=== PATIENT | female | born 1960 | race Caucasian/White ===

== ENCOUNTER 2019-02-06 12:39 | Emergency (ER) | payer OTHER ==
[2019-02-06] MEDS ORDERED: TETRACAINE HCL 0.5% 2ML OPTH ONE (13:44)
[2019-02-06] MEDS ORDERED: FLUORESCEIN SODIUM 1 MG/WRAP ONE (13:44)
[2019-02-06] MEDS ORDERED: ASPIRIN 81 MG CHEWABLE TABLET ONE (13:49)
[2019-02-06] MEDS ORDERED: FOLIC ACID 5 MG/ML VIAL ONE (13:50)
--- NOTE | 2019-02-06 14:33 | EDPHYS ---
Physician Documentation [facility] Name: Hugo Omer Age: 59 yrs Sex: Female : 1960 Arrival Date: 02/06/2019 Time: 12:44 Bed 26 Private MD: Antonia Truong C ED Physician Demian Cantu HPI: 02/06 13:30 This 59 yrs old Female presents to ER via Ambulatory with complaints of Eye cp Swelling. 13:30 The patient is experiencing pain, to the right eye. Onset: The symptoms/episode cp began/occurred yesterday, and became worse today. Duration: the symptoms are continuous. Associated signs and symptoms: Pertinent positives: headache, Pertinent negatives: chills, fever, runny nose, change in vision. Patient does not utilize any form of vision correction. Severity of symptoms: in the emergency department the symptoms have improved mildly. Historical: - Allergies: 12:56 Sulfa (Sulfonamide Antibiotics); sv - PMHx: 12:56 degenerative disc dse of cervical spine; Diabetes - NIDDM; Hypertension; no adrenal sv glands; under active thyroid; - PSHx: 12:56 None; sv - Immunization history:: Flu vaccine is not up to date. - Social history:: Smoking status: Patient/guardian denies using tobacco. - Ebola Screening: : No symptoms or risks identified at this time. ROS: 13:35 Constitutional: Negative for body aches, chills, fever, poor PO intake. cp 13:35 Eyes: Positive for pain, redness, swelling, of the right eye, Negative for discharge, cp photophobia. 13:35 ENT: Negative for drainage from ear(s), ear pain, rhinorrhea, sinus congestion, sore throat, difficulty swallowing, difficulty handling secretions. 13:35 Respiratory: Negative for cough, wheezing. 13:35 Abdomen/GI: Negative for abdominal pain, nausea, vomiting, and diarrhea. 13:35 Neuro: Positive for headache, Negative for altered mental status, weakness. 13:35 All other systems are negative. Exam: 13:40 Constitutional: The patient appears in no acute distress, alert, awake, non-toxic, well cp developed, well nourished. 13:40 Head/Face: Normocephalic, atraumatic. cp 13:40 Eyes: Periorbital structures: swelling, that is mild, on the right lower eyelid, Pupils: equal, round, and reactive to light and accomodation, Extraocular movements: intact throughout, Sclera: no appreciated abnormality, Lids and lashes: drainage, is not appreciated, stye, right lower inner eyelid, Visual patton: are intact. 13:40 ENT: External ear(s): are unremarkable, Ear canal(s): are normal, clear, TM's: dullness, bilaterally, Nose: is normal, Mouth: Lips: moist, Oral mucosa: pink and intact, moist, Posterior pharynx: is normal, airway is patent, no erythema, no exudate, Voice: is normal. 13:40 Neck: ROM/movement: is normal, is supple, without pain, no range of motions limitations, no meningismus, no nuchal rigidity. 13:40 Chest/axilla: Inspection: normal. 13:40 Cardiovascular: Rate: normal. 13:40 Respiratory: the patient does not display signs of respiratory distress, Respirations: normal, no use of accessory muscles, no retractions, no splinting, no tachypnea, labored breathing, is not present. 13:40 Abdomen/GI: Inspection: abdomen appears normal. cp 13:40 Skin: cellulitis, that is mild, on the right lower eyelid. cp 14:29 Visual Acuity: I have reviewed the nursing documentation. cp Vital Signs: 12:56 BP 130 / 83; Pulse 89; Resp 18; Temp 97.9; Pulse Ox 97% ; Weight 68.95 kg; Height 5 ft. sv 4 in. (162.56 cm); 14:20 BP 128 / 81; Pulse 90; Resp 19; Pulse Ox 98% on R/A; ca1 12:56 Body Mass Index 26.09 (68.95 kg, 162.56 cm) sv Visual Acuity: 13:40 Left Eye Visual acuity 20/25, Normal; Right Eye Visual acuity 20/20, Normal; Both Eyes ca1 Visual acuity 20/20; Without Lenses; MDM: 13:16 Patient medically screened. cp 13:30 Differential diagnosis: Foreign body in right eye. Infectious conjunctivitis in right cp eye. 14:30 Counseling: I had a detailed discussion with the patient and/or guardian regarding: the cp historical points, exam findings, and any diagnostic results supporting the discharge/admit diagnosis, to return to the emergency department if symptoms worsen or persist or if there are any questions or concerns that arise at home. 14:30 Response to treatment: the patient's symptoms have mildly improved after treatment, and cp as a result, I will discharge patient. 14:31 Data reviewed: vital signs, nurses notes. cp 02/06 13:23 Order name: Visual Acuity; Complete Time: 13:47 cp 02/06 13:23 Order name: Eye Tray; Complete Time: 13:38 cp 02/06 13:23 Order name: Fluoresene Opth strip; Complete Time: 13:38 cp Administered Medications: 13:38 Drug: Ibuprofen 800 mg Route: PO; ca1 14:44 Follow up: Response: No adverse reaction; Pain is decreased ca1 14:15 Drug: Tetracaine Drops 0.5 % 1 drops Route: Ophthalmic; Site: right eye; ca1 Disposition: 15:00 Chart complete. cp Disposition: 02/06/19 14:32 Discharged to Home. Impression: Hordeolum internum right lower eyelid. - Condition is Stable. - Discharge Instructions: Tera. - Prescriptions for Keflex 500 mg Oral Capsule - take 1 capsule by ORAL route every 6 hours for 10 days; 40 capsule. Vigamox 0.5 % Ophthalmic Drops - instill 1 drop by OPHTHALMIC route every 8 hours for 7 days instill drops in right eye; 5 milliliter. - Medication Reconciliation Form, Thank You Letter, Antibiotic Education, Prescription Opioid Use form. - Follow up: Private Physician; When: 2 - 3 days; Reason: Worsening of condition. - Problem is new. - Symptoms have improved. Addendum: 02/09/2019 07:09 Co-signature as Attending Physician, Demian Cantu MD I agree with the assessment and c zhao plan of care. Signatures: Sepideh Perez, RN RN Demian Pollard MD MD cha Page, Corey PA IRIS cp Enriqueta Anaya RN RN ca1 Corrections: (The following items were deleted from the chart) 02/06 14:46 14:32 02/06/2019 14:32 Discharged to Home. Impression: Hordeolum internum right lower ca1 eyelid. Condition is Stable. Forms are Medication Reconciliation Form, Thank You Letter, Antibiotic Education, Prescription Opioid Use. Follow up: Private Physician; When: 2 - 3 days; Reason: Worsening of condition. Problem is new. Symptoms have improved. cp
--- NOTE | 2019-02-06 14:33 | ER ---
Nurse's Notes [facility] Name: Hugo Omer Age: 59 yrs Sex: Female : 1960 Arrival Date: 02/06/2019 Time: 12:44 Bed 26 Private MD: Antonia Truong C Diagnosis: Hordeolum internum right lower eyelid Presentation: 02/06 12:55 Presenting complaint: Patient states: right eye stye started yesterday and swelling has sv increased. Pt reports mowing grass yesterday. Transition of care: patient was not received from another setting of care. Onset of symptoms was February 05, 2019. Care prior to arrival: None. 12:55 Method Of Arrival: Ambulatory sv 12:55 Acuity: TASHIA 3 sv 13:05 Risk Assessment: Do you want to hurt yourself or someone else? Patient reports no ca1 desire to harm self or others. 13:05 Initial Sepsis Screen: Does the patient meet any 2 criteria? No. Patient's initial ca1 sepsis screen is negative. Does the patient have a suspected source of infection? No. Patient's initial sepsis screen is negative. Triage Assessment: 12:58 General: Appears in no apparent distress. uncomfortable, well groomed, well developed, sv Behavior is calm, cooperative, appropriate for age. Pain: Complains of pain in right eye Pain. Neuro: Level of Consciousness is awake, alert, obeys commands, Oriented to person, place, time, situation, Moves all extremities. Full function Gait is steady. Respiratory: Respiratory effort is even, unlabored, Respiratory pattern is regular, symmetrical. Derm: Skin is pink, warm \T\ dry. Historical: - Allergies: 12:56 Sulfa (Sulfonamide Antibiotics); sv - PMHx: 12:56 degenerative disc dse of cervical spine; Diabetes - NIDDM; Hypertension; no adrenal sv glands; under active thyroid; - PSHx: 12:56 None; sv - Immunization history:: Flu vaccine is not up to date. - Social history:: Smoking status: Patient/guardian denies using tobacco. - Ebola Screening: : No symptoms or risks identified at this time. Screenin:05 Abuse screen: Denies threats or abuse. Denies injuries from another. Nutritional ca1 screening: No deficits noted. Tuberculosis screening: No symptoms or risk factors identified. Fall Risk None identified. Assessment: 13:05 General: Appears in no apparent distress. comfortable, Behavior is calm, cooperative, ca1 appropriate for age. Pain: Complains of pain in right eye Pain does not radiate. Pain currently is 4 out of 10 on a pain scale. Pain began last night. Neuro: Level of Consciousness is awake, alert, obeys commands, Oriented to person, place, time, situation. Cardiovascular: Heart tones S1 S2 present Capillary refill < 3 seconds Patient's skin is warm and dry. Respiratory: Airway is patent Respiratory effort is even, unlabored, Respiratory pattern is regular, symmetrical, Breath sounds are clear bilaterally. GI: No deficits noted. No signs and/or symptoms were reported involving the gastrointestinal system. : No deficits noted. No signs and/or symptoms were reported regarding the genitourinary system. EENT: Eyes are tearing on inner aspect of conjuctiva of right eye raised white-filled bump at inner lower conjunctiva of the R eye noted. . Reports pain in right eye swelling around the R eye. . Derm: Skin is intact, is healthy with good turgor, Skin is pink, warm \T\ dry. Musculoskeletal: Circulation, motion, and sensation intact. Capillary refill < 3 seconds. 14:10 Reassessment: Patient appears in no apparent distress at this time. Patient and/or ca1 family updated on plan of care and expected duration. Pain level reassessed. Patient is alert, oriented x 3, equal unlabored respirations, skin warm/dry/pink. 14:20 Reassessment: Patient appears in no apparent distress at this time. Patient is alert, ca1 oriented x 3, equal unlabored respirations, skin warm/dry/pink. IRIS Shaw at bedside. Vital Signs: 12:56 BP 130 / 83; Pulse 89; Resp 18; Temp 97.9; Pulse Ox 97% ; Weight 68.95 kg; Height 5 ft. sv 4 in. (162.56 cm); 14:20 BP 128 / 81; Pulse 90; Resp 19; Pulse Ox 98% on R/A; ca1 12:56 Body Mass Index 26.09 (68.95 kg, 162.56 cm) sv Visual Acuity: 13:40 Left Eye Visual acuity 20/25, Normal; Right Eye Visual acuity 20/20, Normal; Both Eyes ca1 Visual acuity 20/20; Without Lenses; ED Course: 12:44 Patient arrived in ED. mr 12:44 Antonia Truong MD is Private Physician. mr 12:51 Patient's name was called from ER lobby. No response. sv 12:56 Triage completed. sv 13:00 Arm band placed on right wrist. ca1 13:05 Sheela Lopez is Primary Nurse. 13:05 Patient has correct armband on for positive identification. Bed in low position. Call ca1 light in reach. Side rails up X 1. Pulse ox on. NIBP on. Warm blanket given. 13:15 Demian Chance PA is PHCP. cp 13:15 Demian Cantu MD is Attending Physician. cp 13:54 Primary Nurse role handed off by Sheela Lopez ca1 13:54 Enriqueta Anaya RN is Primary Nurse. ca1 14:46 Patient did not have IV access during this emergency room visit. ca1 14:46 No provider procedures requiring assistance completed. ca1 Administered Medications: 13:38 Drug: Ibuprofen 800 mg Route: PO; ca1 14:44 Follow up: Response: No adverse reaction; Pain is decreased ca1 14:15 Drug: Tetracaine Drops 0.5 % 1 drops Route: Ophthalmic; Site: right eye; ca1 Outcome: 14:32 Discharge ordered by MD. cp 14:35 Discharged to home ambulatory. ca1 14:35 Condition: stable 14:35 Discharge instructions given to patient, Instructed on discharge instructions, follow up and referral plans. medication usage, Demonstrated understanding of instructions, follow-up care, medications, Prescriptions given X 2. 14:46 Patient left the ED. ca1 Signatures: Sepideh Perez RN RN [place] Yvonne mr Demian Chance PA PA cp Habalo, Winsy Enriqueta Anaya RN RN ca1 Corrections: (The following items were deleted from the chart) 12:58 12:56 Pulse 89bpm; Resp 18bpm; Pulse Ox 97%; Temp 97.9F; 68.95 kg; Height 5 ft. 4 in.; sv BMI: 26.0; sv 22:00 14:46 No provider procedures requiring assistance completed. ca1 ca1 22:03 14:20 Reassessment: Patient appears in no apparent distress at this time. Patient is ca1 alert, oriented x 3, equal unlabored respirations, skin warm/dry/pink. ca1 22:05 22:04 Discharged to home ambulatory, ca1 ca1 22:04 15: Condition: stable ca1 ca1 :04 15: Discharge instructions given to patient, Instructed on discharge instructions, ca1 follow up and referral plans. medication usage, Demonstrated understanding of instructions, follow-up care, medications, Prescriptions given X 2, ca1
[2019-02-06 14:50] VITALS: BP 130/83; TEMP 97.9; O2SAT 97
== END 2019-02-06 14:46 | disposition home or self-care (01) ==
LOC: ER 12:39
DX: H00.022 Hordeolum internum right lower eyelid (principal); Z88.2 Allergy status to sulfonamides; E11.9 Type 2 diabetes mellitus without complications; I10 Essential (primary) hypertension
CPT/HCPCS: 99283

== ENCOUNTER 2020-10-12 08:00 | Day surgery (SDC) | payer OTHER ==
--- NOTE | 2020-10-07 13:12 | RAD REPORT ---
EXAM DESCRIPTION: RAD - Chest Pa And Lat (2 Views) - 10/07/2020 12:51 pm CLINICAL HISTORY: preop, pending gallbladder removal COMPARISON: PA chest December 2017 TECHNIQUE: Frontal and lateral views of the chest were obtained. FINDINGS: The lungs are clear. Heart size is normal and central vasculature is within normal limit s. No pleural effusion or pneumothorax seen. No acute bony finding noted. No aortic abnormality. No significant change from comparison study. IMPRESSION: No acute cardiopulmonary process.
[2020-10-07 14:20] LABS: Albumin 3.5 g/dL (3.4-5.0); Bilirubin Direct 0.1 mg/dL (0-0.2); Bilirubin Total 0.5 mg/dL (0.2-1.0); Protein, Total 6.9 g/dL (6.4-8.2)
--- NOTE | 2020-10-09 07:46 | EKG ---
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
--- OUTSIDE RECORDS SUMMARY | 2020-10-12 08:03 | XMS REPORT | Clinical Summary ---
:1960 Author Organization [facility] Address [address] [place] [address] Care Team Providers Name Role Phone Asked, Pcp Primary Care Provider Unavailable Allergies Active Allergy Reactions Severity Noted Date Comments Sulfa (Sulfonamide Antibiotics) GI Intolerance 019 Medications Medication Sig Dispensed Refills Start Date End Date Status hydrocortisone (CORTEF) Take 20 mg by 0 08/27/2019 Active 20 MG tablet mouth daily. hydrocortisone (CORTEF) 10 mg. Takes at 0 09/29/2019 Active 10 MG tablet 4 pm HYDROcodone-acetaminophen Take 1 tablet 0 07/10/2019 Active (NORCO) 10-325 mg per by mouth every tablet 6 (six) hours as needed. fluconazole (DIFLUCAN) Take 150 mg by 1 07/21/2019 Active 150 MG tablet mouth daily. SYNTHROID 75 mcg tablet Take 75 mcg by 0 09/08/2019 Active mouth every morning. losartan (COZAAR) 25 MG Take 25 mg by 2 09/29/2019 Active tablet mouth nightly. estradiol (ESTRACE) 1 MG Take 1 mg by 1 09/08/2019 Active tablet mouth daily. traZODone (DESYREL) 50 MG Take 50 mg by 0 09/29/2019 Active tablet mouth every evening. liraglutide (VICTOZA) 0.6 Inject 1.2 mg 0 Active mg/0.1 mL (18 mg/3 mL) under the skin pen injector daily with breakfast. prasterone, DHEA, (DHEA 1 07/03/2019 Active ORAL) fludrocortisone Take 1 mg by 0 09/08/2019 Active (FLORINEF) 0.1 mg tablet mouth daily. 0.5 daily Active Problems Problem Noted Date Preop testing 10/28/2019 Fusion of spine of cervical region 10/28/2019 Encounters Date Type Specialty Care Team Description 10/28/2019 Surgery General Surgery Eleazar Mensah ACDF C3 -7 MD Geovani 10/28/2019 Anesthesia Event General Surgery Bre Bazan MD Raheem Mukherjee 10/28/2019 - Hospital Encounter General Surgery Eleazar Mensah P reop testing 10/29/2019 MD Geovani after 10/12/2019 Surgical History Surgery Date Site/Laterality Comments IR EPIDURAL STEROID INJECTION ADRENALECTOMY TRANSPHENOIDAL / TRANSNASAL HYPOPHYSECTOMY / RESECTION PITUITARY TUMOR HYSTERECTOMY EYE SURGERY iol BRAIN SURGERY 11/25/1979 - 11/24/1980 DISCECTOMY, CERVICAL, WITH 10/28/2019 Spine Cervical/N/A Pr ocedure: ACDF C3-7; FUSION, ANTERIOR APPROACH Surge on: Eleazar Mensah MD; Location: [facility]; Service: Neurosurgery; Laterality: N/A; Medical devices from this surgery are in the Implants sec tion. Medical History Medical History Date Comments Adrenal insufficiency (HCC) Aryan's syndrome (HCC) Hypertension Type 2 diabetes mellitus (HCC) Cervical spondylosis Myelopathy (HCC) Obstruction of right tear duct H/O: pituitary tumor Neck problem Autoimmune disease (HCC) Back problem Cataract Vision loss Current use of steroid medication Disease of thyroid gland Hypothyroidism DJD (degenerative joint disease) of cervical spine DJD (degenerative joint disease), lumbar Family History Medical History Relation Name Comments Heart disease Father Atrial fibrillation Mother CABG/Stent Mother Dementia Mother Diabetes Mother Heart disease Mother Stroke Mother Relation Name Status Comments Father Mother Alive Social History Tobacco Use Types Packs/Day Years Used Date Never Smoker Smokeless Tobacco: Never Used Alcohol Use Drinks/Week oz/Week Comments Never Alcohol Habits Answer Date Recorded How often do you have a drink containing alcohol? Never 10/09/2019 How many drinks containing alcohol do you have on a typical Not asked day when you are drinking? How often do you have six or more drinks on one occasion? No t asked Sex Assigned at Date Recorded Not on file Last Filed Vital Signs Vital Sign Reading Time Taken Comments Blood Pressure 110/58 10/29/2019 12:03 PM [facility] Pulse 74 10/29/2019 12:03 PM [facility] Temperature 36.9 C (98.4 F) 10/29/2019 12:03 PM [facility] Respiratory Rate 16 10/29/2019 12:03 PM [facility] Oxygen Saturation 95% 10/29/2019 12:03 PM [facility] Inhaled Oxygen Concentration - - Weight 73.9 kg (163 lb) 10/28/2019 9:00 PM [facility] Height 162.6 cm (5' 4") 10/28/2019 9:00 PM [facility] Body Mass Index 27.98 10/28/2019 9:00 PM [facility] Plan of Treatment Health Maintenance Due Date Last Done Comments CERVICAL CANCER SCREENING 1980 BREAST CANCER SCREENING 2009 COLONOSCOPY SCREENING 2009 SHINGLES VACCINES (#1) 2009 INFLUENZA VACCINE 06/25/2020 Implants Implanted Type Area Javascript Ui Developer Device Shelf Model / Identifier Expiration Serial / Date Lot Cortical Cervical Spacer Lordotic, 7mm - [id number] IMPLANT N/A: N/A ALPHAT[employer] SPINE PTT LCCS 07S / Implanted: Qty: 1 on 10/28/2019 by Eleazar Mensah MD at [facility] [employer] / [id number] Cortical Cervical Spacer Lordotic, 7mm - [id number] IMPLANT N/A: N/A ALPHATEC SPINE PTT LCCS 07S / Implanted: Qty: 1 on 10/28/2019 by Eleazar Mensah MD at [facility] [employer] / [id number] Cortical Cervical Spacer Lordotic, 7mm - [id number] [id number] IMPLANT N/A: N/A ALPHATEC SPINE PTT LCCS 07S / Implanted: Qty: 1 on 10/28/2019 by Eleazar Mensah MD at [facility] [employer] / [id number] Trestle Lux Anterior Cervical Plate, 4-Level, 68mm - [id number] [id number] IMPLANT N/A: N/A ALPHATEC SPINE [id number] / Implanted: Qty: 1 on 10/28/2019 by Eleazar Mensah MD at [facility] [employer] / NONE 4.0mm Trestle Luxe Variable Angle, Self Tapping, Hexalobe Screw, Ti, 12mm - [id number] [id number] IMPLANT N/A: N/A ALPHATEC SPINE [id number] / Implanted: Qty: 10 on 10/28/2019 by Eleazar Mensah MD at [facility] [employer] / Lordotic Cortical Cervical Spacer (S) 8mm Ortho - N/A: Spine [id number] / Implanted: Qty: 1 on 10/28/2019 by Eleazar Mensah MD at [facility] Spinal Cervical / Implant [id number] Procedures Procedure Name Priority Date/Time Associated Diagnosis Comme nts XR CERVICAL SPINE 2 STAT 10/28/2019 10:31 Resu lts for this OR 3 VW PM [facility] procedure are i n the results section. XR CERVICAL SPINE 2 Routine 10/28/2019 2:48 Resu lts for this OR 3 VW PM [facility] procedure are i n the results section. POC GLUCOSE Routine 10/28/2019 2:38 Results for this PM [facility] procedure are i n the results section. OR FL > 1 HOUR Routine 10/28/2019 1:50 Results f or this PM [facility] procedure are i n the results section. SURGICAL PATHOLOGY Routine 10/28/2019 11:03 Resul ts for this REQUEST AM [facility] procedure are i n the results section. TX AN ELECTIVE Routine 10/28/2019 10:22 Results f or this ENDOTRACHEAL AIRWAY AM [facility] procedur e are in the results section. ARTERIAL LINE Routine 10/28/2019 10:21 Results fo r this AM [facility] procedure are i n the results section. DISCECTOMY, CERVICAL, 10/28/2019 9:21 CERVICAL SPONDY LOSIS WITH FUSION, ANTERIOR AM [facility] M50.00 APPROACH Special Needs PREFFERRED [facility] RA RANDHAWA ([phone]) AWARE OF CASE SCHEDULED FOR 10/28/19 AT 10AM DCM POC GLUCOSE Routine 10/28/2019 8:27 AM Results for this [facility] procedure are i n the results section. TYPE AND SCREEN Routine 10/27/2019 3:51 PM Preoperative testi ng Results for this [facility] procedure are i n the results section. after 10/12/2019 Results XR Cervical Spine 2 Or 3 Vw (10/28/2019 10:31 PM [facility])Only the most recent of2 resultswithin the time period is included. Specimen Narrative Performed At EXAMINATION: XR CERVICAL SPINE 2 OR 3 VW HM [facility] NUMBER OF VIEWS: 2 CLINICAL HISTORY: C-spine fusion fol low up COMPARISON: Intraoperative cervical sp ine October 28, 2019 FINDINGS: Postop changes have appeared since last examination w ith interbody graft placement at C3-4, C4-5, C5-6 and C6-7. There is an anterior plate and screw internal fixation device from C3 to C7 with bilateral screws present at each level. The alignment is normal except for what appears to be gra de 1 spondylolisthesis at C7-T1. There are fwxq-jj-wvqgwydv degenerative changes in the facet joints with otherwise minimal spondylosis. The AP dimensions of the cervical spinal canal are within normal limits. There are surgical clips in the anterior neck on the right side. IMPRESSION: Postoperative changes appearing since la st examination. [id number] Procedure Note Hm Interface, Radiology Results Incoming - 10/28/2019 10:38 PM [facility] EXAMINATION: XR CERVICAL SPINE 2 OR 3 VW NUMBER OF VIEWS: 2 CLINICAL HISTORY: C-spine fusion follo w up COMPARISON: Intraoperative cervical spi ne October 28, 2019 FINDINGS: Postop changes have appeared since last examination with interbody graft placement at C3-4, C4-5, C5-6 and C6-7. There is an anterior plate and screw internal fixation device from C3 to C7 with bilateral screws present at each level. The alignment is normal except for what appears to be gra de 1 spondylolisthesis at C7-T1. There are fwmc-yz-fyxnmhcw degenerative changes in the facet joints with otherwise minimal spondylosis. The AP dimensions of the cervical spinal canal are within normal limits. There are surgical clips in the anterior neck on the right side. IMPRESSION: Postoperative changes appearing since la st examination. [id number] Performing Organization Address City/[facility] Phon e Number [facility] [address] [place] [address] POC glucose (10/28/2019 2:38 PM [facility])Only the most recent of2 resultswithin the time period is included. Pathologist Sig nature POC glucose 147 (H) 65 - 99 mg/dL STEPHANY GAYTAN Comment: [facility] Meter ID: [id number] Technical Support Representative: Christiana Reeves Specimen Performing Organization Address City/[facility]/ZIP [facility] Phon e Number [facility] DEPARTMENT OF PATHOLOGY AND [address] [place] [address] GENOMIC MEDICINE [facility] [address] [place], [place] [address] HOSPITAL OR [place] > I Hour (10/28/2019 1:50 PM [facility]) Specimen Narrative Performed At EXAMINATION: OR FL > 1 HOUR [facility] C-arm fluoroscopy was requested in OR. FLUORO TIME 0:12 IMPRESSION: Separate operative report will be issued by the physic saul performing the procedure. [id number] Procedure Note Hm Interface, Radiology Results Incoming - 10/28/2019 2:49 PM [facility] EXAMINATION: OR FL > 1 HOUR C-arm fluoroscopy was requested in OR. FLUORO TIME 0:12 IMPRESSION: Separate operative report will be issued by the physician performing the procedure. [id number] Performing Organization Address City/State/ZIP Code Phon e Number [facility] [address] [place] [address] Surgical pathology request (10/28/2019 11:03 AM [facility]) [facility] DEPARTMENT OF PATHOLOGY AND GENOMIC MEDICINE Surgical pathology See link below [facility] DEPARTMENT OF report for PDF Lab PATHOLOGY AND Report GENOMIC MEDICINE Result status This is Final [facility] DEPARTMENT OF Report for PATHOLOGY AND [id number] GENOMIC MEDICINE Specimen Performing Organization Address City/[facility] Code Phon e Number [facility] DEPARTMENT OF PATHOLOGY AND [address] [place] [address] GENOMIC MEDICINE Airway (10/28/2019 10:22 AM [facility]) Narrative Performed At Raheem Mukherjee 10/28/2019 12:31 PM Airway Date/Time: 10/28/2019 9:31 AM Performed by: Raheem Mukherjee Authorized by: Bre Bazan MD Location: OR Urgency: Elective Difficult Airway: No Anesthesiologist: Bre Bazan MD Resident/SCHOOL PRINCIPAL/AA: Raheem Mukherjee Performed by: resident/SCHOOL PRINCIPAL/AA Preoxygenated with 100% O2: Yes Mask Ventilation: Easy mask Final Airway Type: Endotracheal airway Final Endotracheal Airway: ETT Cuffed: Yes Technique Used: Direct laryngoscopy Devices/Methods Used in Placement: Int ubating stylet Insertion Site: Oral Blade Type: Prasad Laryngoscope Blade/Videolaryngoscope Nura de Size: 2 ETT Size (mm): 7.0 Cuff at minimum occlusion pressure: Yes Measured from: Teeth ETT to Teeth (cm): 20 Placement Verified by: CO2 detection and direct visualization Laryngoscopic view: Grade I - full vie w of glottis Rapid Sequence Induction (RSI): No Modified RSI: No Number of Attempts at Approach: 1 Atraumatic, teeth intact, soft bite blo ck placed between molars bilaterally Arterial line (10/28/2019 10:21 AM [facility]) Narrative Performed At Raheem Mukherjee 10/28/2019 10:22 AM Arterial line Performed by: Raheem Mukherjee Authorized by: Bre Bazan MD Patient Location: OR Start Time: 10/28/2019 9:32 AM End Time: 10/28/2019 9:36 AM Staff: Anesthesiologist: Bre Bazan Ra, MD Performed by: Anesthesiologist Pre-procedure: patient identified, IV ch ecked, site and side verified, risks and benefits discussed, procedure verified, surgical consent complete, patient position confirmed, monitors and equ ipment checked and pre-op evaluation complete TIme Out Performed: 10/28/2019 9:26 AM Indications: Indications: hemodynamic monitoring Anesthesia: Anesthesia: General Procedure Details: Arterial Line placement: Placed pos t induction Line placement site: Radial Line placement side: Right Arterial line gauge: 20 G Number of attempts: 1 Ultrasound guidance used: No Post-procedure: Post-procedure: Sterile dressing ap plied Post procedure circulation, sensation , movement: Normal Patient tolerance: Patient tolerate d the procedure well with no immediate complications Type and screen (10/27/2019 3:51 PM [facility]) Pathologist Sig nature ABO grouping A [facility] Rh type POS [facility] Antibody screen NEG [facility] Specimen Blood Performing Organization Address City/State/ZIP Code Phon e Number [facility] DEPARTMENT OF PATHOLOGY AND [address] [place] [address] GENOMIC MEDICINE [facility] [address] [address] [place], [place] [address] HOSPITAL after 10/12/2019 Advance Directives For more information, please contact: [phone] Type Date Recorded Patient Pharmacy Sales Assistant Explanati on Advance Directives, Living Will and Medical Power of House Designer
--- OUTSIDE RECORDS SUMMARY | 2020-10-12 08:04 | XMS REPORT | Summary of Care ---
:1960 Author Organization [facility] Address [address] [place] [id number] Care Team Providers Name Role Phone Pcp, Does Not Have A Primary Care Provider Reason for Visit Radiology Services (Routine) Status Reason Specialty Diagnoses / Referred By Referred To Procedures Contact Contact New Request Diagnostic Diagnoses Chronic pain of right knee Tomi Hughes Radiology Procedures XR KNEE 3 VW RIGHT MD Jennifer [address] [place] [phone] Encounter Details Date Type Department Care Team Description 09/22/2020 [facility] [address] [place] [phone] Allergies Active Allergy Reactions Severity Noted Date Comments Sulfa (Sulfonamide Antibiotics) Nausea and/or Vomiting 09/13/2017 documented as of this encounter (statuses as of 09/23/2020) Medications Medication Sig Dispensed Refills Start Date End Date Status SYNTHROID 50 mcg tablet 0 09/07/2017 Active metformin ER 500 mg 24 0 08/31/2017 Active hr tablet hydrocortisone 10 mg 0 07/22/2017 Active tablet fludrocortisone 0.1 mg 0 07/30/2017 Active tablet valsartan 40 mg tablet 0 09/09/2017 Active traZODONE 50 mg tablet 0 08/05/2017 Active diclofenac 75 mg EC Take 1 tablet by 60 tablet 1 09/13/2017 Active tablet mouth 2 (two) times daily with meals. Diclofenac Sodium Apply 2mg-4mg to 100 g 1 09/13/2017 Active (VOLTAREN) 1 % gel affected area 4 times daily documented as of this encounter (statuses as of 09/23/2020) Active Problems Not on filedocumented as of this encounter (statuses as of 09/23/2020) Social History Tobacco Use Types Packs/Day Years Used Date Never Smoker Smokeless Tobacco: Never Used Sex Assigned at Date Recorded Not on file COVID-19 Exposure Response Date Recorded In the last month, have you been in contact with No / Unsure 09/22/2020 1:15 PM CDT someone who was confirmed or suspected to have Coronavirus / COVID-19? documented as of this encounter Last Filed Vital Signs Not on filedocumented in this encounter Plan of Treatment Name Type Priority Associated Diagnoses Date/Ti me XR KNEE 3 VW RIGHT IMAGING Routine Chronic pain of right 09/22/2020 1:03 PM CDT knee Name Type Priority Associated Diagnoses Order S chedule XR KNEE 3 VW RIGHT IMAGING Routine Chronic pain of right ONCE for 1 Occurrences knee starting 2019 until 09/22/2020 Health Maintenance Due Date Last Done Comments HEPATITIS C (HCV) SCREEN 1960 Depression Screening 1971 DTaP,Tdap,and Td Vaccines (1 - 1978 Tdap) PAP SMEAR 1980 Breast Cancer Screening (MAMMOGRAM) 1999 COLON CANCER SCREENING ANNUAL 2009 FIT/FOBT COLON CANCER SCREENING FIT DNA 2009 EVERY 3 YEARS COLON CANCER SCREENING 2009 SIGMOIDOSCOPY EVERY 5 YEARS COLONOSCOPY 2009 Colorectal Cancer Screening 2009 Zoster Recombinant Vaccine 2009 (SHINGRIX) (1 of 2) INFLUENZA VACCINE (#1) 2020 PNEUMOCOCCAL 0-64 YEARS COMBINED Aged Out No longer eligible based on SERIES patient's age to complete this topic documented as of this encounter Results Not on filedocumented in this encounter Visit Diagnoses Diagnosis Chronic pain of right knee documented in this encounter documented as of this encounter
--- OUTSIDE RECORDS SUMMARY | 2020-10-12 08:04 | XMS REPORT | Continuity of Care Document ---
:1960 Author Organization [facility] t Address [address] [place] [address] Care Team Providers Name Role Phone Asked, Pcp Primary Care Physician Unavailable Saul DAILY, L Attending Clinician Rodrick DAILY, M. Attending Clinician Kelly Bazan MD Attending Clinician You Attending Clinician Payers Payer Name Policy Type Policy Effective Date Expiration Date Sour ce Number AETNAAETNA [id number] 2009 [place] HMO,POS,EPO, 00:00:00 Mandaeism RAUL/[id number] 010-PresentHMO Problems Condition Condition Condition Status Onset Resolution Last Treating Co mments Source Name Details Category Date Date Treatment Clinician Date Preop Preop Disease Active 2018-11 [place] testing testing 2-04 Methodi 00:00: st 00 Fusion of Fusion of Disease Active 2018-11 [place]andy [place]on spine of spine of -04 Method i cervical cervical 00:00: st region region 00 Allergies, Adverse Reactions, Alerts Allergy Allergy Status Severity Reaction(s) Onset Inactive Treating Comm ents Source Name Type Date Date Clinician Sulfa Propensi Active GI 2018-11 [place] (Sulfona ty to Intolerance 2-04 Met hodi mide adverse 00:00: st Antibiot reaction 00 ics) s to drug No Known DA Active [facility] Allergie 8-15 [place] [facility] Family History Family Member Diagnosis Comments Start Date Stop Date Source Natural father Heart disease [place] [facility]aeism Natural mother Atrial fibrillation [place] Natural mother CABG/Stent [facility] thodist Natural mother Dementia [facility] thodist Natural mother Diabetes [facility]odist Natural mother Heart disease [place] Mandaeism Natural mother Stroke [facility]odist Social History Social Habit Start Date Stop Date Quantity Comments Source History [facility] Meth odist Alcohol Std Drinks History [facility] Meth odist Alcohol Binge Sex Assigned At [facility] ethodist Tobacco use and 2019-10-28 2019-10-28 Never used [facility] ethodist exposure 00:00:00 00:00:00 Alcohol intake 2019-10-28 2019-10-28 Lifetime [facility] thodist 00:00:00 00:00:00 non-drinker (finding) History [facility] 2019-10-09 2019-10-09 1 [place] Meth odist Alcohol Frequency 00:00:00 00:00:00 Smoking Status Start Date Stop Date Source Never smoker [place] Method[facility] t Medications Ordered Filled Start Stop Current Ordering Indication Dosage Frequency Signature Comments Components Source Medication Medication Date Date Medication? Clinician (SIG) Name Name liraglutide 2018-11 Yes 1.2mg QD Inject 1.2 [place] (VICTOZA) 2-05 mg under Method i 0.6 mg/0.1 13:06: the skin st mL (18 mg/3 15 daily with mL) pen breakfast. injector hydrocortis 2018-11 Yes 10mg 10 mg. [place] one 1-05 Takes at 4 Method[facility] (CORTEF) 10 00:00: pm st MG tablet 00 losartan 2018-11 Yes 25mg QD Take 25 mg [place] (COZAAR) 25 1-05 by mouth Meth rachel MG tablet 00:00: nightly. st 00 traZODone 2018-11 Yes 50mg QD Take 50 mg [place] (DESYREL) 1-05 by mouth Method i 50 MG 00:00: every st tablet 00 evening. SYNTHROID 2018-11 Yes 75ug QD Take 75 [place] 75 mcg 0-15 mcg by Methodi tablet 00:00: mouth st 00 every morning. estradiol 2018-11 Yes 1mg QD Take 1 mg [place] (ESTRACE) 1 0-15 by mouth Meth rachel MG tablet 00:00: daily. st 00 fludrocorti 2018-11 Yes 1mg QD Take 1 mg [place] sone 0-15 by mouth Methodi (FLORINEF) 00:00: daily. 0.5 s t 0.1 mg 00 daily tablet hydrocortis 2018-11 Yes 20mg QD Take 20 mg [place] one 0-03 by mouth Methodi (CORTEF) 20 00:00: daily. st MG tablet 00 fluconazole Yes 150mg QD Take 150 [place] (DIFLUCAN) 8-27 mg by Methodi 150 MG 00:00: mouth st tablet 00 daily. HYDROcodone Yes 1{tbl} Q6H Take 1 [place] -acetaminop 8-16 tablet by Met deann azev[place] (NORCO) 00:00: mouth st 10-325 mg 00 every 6 per tablet (six) hours as needed. prasterone, Yes [place] DHEA, (DHEA 8-09 Methodi ORAL) 00:00: st 00 Vital Signs Vital Name Observation Time Observation Value Comments Source Systolic blood 2019-10-29 12:03:53 110 mm[Hg] [place] [facility] pressure Diastolic blood 2019-10-29 12:03:53 58 mm[Hg] [place] [facility] pressure Heart rate 2019-10-29 12:03:53 74 /min Joseph Elder Body temperature 2019-10-29 12:03:53 36.89 Amalia [place] [facility]ism Respiratory rate 2019-10-29 12:03:53 16 /min [place] Oxygen saturation in 2019-10-29 12:03:53 95 /min Joseph Elder Arterial blood by Pulse oximetry Body height 2019-10-28 21:00:00 162.6 cm Joseph Elder Body weight 2019-10-28 21:00:00 73.936 kg Joseph Elder BMI 2019-10-28 21:00:00 27.98 kg/m2 Joseph Elder Procedures Procedure Date / Time Performed Performing Clinician Sourc e XR CERVICAL SPINE 2 OR 3 2019-10-28 22:31:50 Eleazar Mensah VW XR CERVICAL SPINE 2 OR 3 2019-10-28 14:48:23 Eleazar Mensah VW POC GLUCOSE 2019-10-28 14:38:00 Eleazar Mensah OR [place] > 1 HOUR 2019-10-28 13:50:00 Eleazar Mensah SURGICAL PATHOLOGY 2019-10-28 11:03:00 Eleazar Mensah REQUEST CA AN ELECTIVE 2019-10-28 10:22:35 LonnyRaheem ENDOTRACHEAL AIRWAY ARTERIAL LINE 2019-10-28 10:21:03 Raheem Mukherjee DISCECTOMY, CERVICAL, 2019-10-28 09:21:00 Eleazar Mensah WITH FUSION, ANTERIOR APPROACH POC GLUCOSE 2019-10-28 08:27:00 Eleazar Mensah TYPE AND SCREEN 2019-10-27 15:51:00 Eleazar Mensah Plan of Care Planned Activity Planned Date Details Comments Source Future Scheduled 2020-06-25 INFLUENZA VACCINE [place] [facility] Test 00:00:00 [code = INFLUENZA VACCINE] Future Scheduled 2009 BREAST CANCER [place] [facility]odist Test 00:00:00 SCREENING [code = BREAST CANCER SCREENING] Future Scheduled 2009 COLONOSCOPY SCREENING [place] [facility] Test 00:00:00 [code = COLONOSCOPY SCREENING] Future Scheduled 2009 SHINGLES VACCINES [place] [facility] Test 00:00:00 (#1) [code = SHINGLES VACCINES (#1)] Future Scheduled 1980 Screening for [facility] thodist Test 00:00:00 malignant neoplasm of cervix (procedure) [code = 316149093] Encounters Start End Encounter Admission Attending Care Care Encounter Source Date/Time Date/Time Type Type Clinicians Facility Department ID 2020-09-22 2020-09-22 Office GLADYS Hughes [id number] 13:02:51 13:39:34 Visit [facility] [id number] Surgical [id number] Specialti [id number] es [address] Results Test Description Test Time Test Comments Results Result Comments Source Surgical pathology request 2019-11-02 11:26:03 Test Item Value Reference Range Interpretation Comme nts Case number (test code = 8359101) [id number] Surgical pathology report (test code = See link below for PDF Lab R eport 4581) Result status (test code = 8767318) This is Final Report for [id number] [place] Methodist[facility] Cervical Spine 2 Or 3 [id number] 22:35:49Hm Interface, Radiology Results - 10/28/2019 10:38 PM CSTEXAMINATION: XR CERVICAL SPINE 2 OR 3 VWNUMBER OF VIEWS: 2CLINICAL HISTORY: C-spine fusion follow upCOMPARISON: Intraoperative cervical spine October 28, 2019FINDINGS: Postop changes have appeared since last examination with interbody graft placement at C3-4, C4-5, C5-6 and C6-7. There is an anterior plate and screw internal fixatio n device from C3 to C7 with bilateral screws present at each level. The alignment is normal except for what appears to be grade 1 spondylolisthesis at C7-T1.There are ndcw-xx-ljvlilwf degenerative changes in the facet joints with otherwise minimal spondylosis.The AP dimensions of the cervical spinal canal are within normal limits.There are surgical clips in the anterior neck on the right side.IMPRESSION:Postoperative changes appearing since last examination.[id number] MethodistOR [place] > I [id number] 14:46:02 Hm Interface, Radiology Results - 10/28/2019 2:49 PM CSTEXAMINATION: OR [place] > 1 HOURC-arm fluoroscopy was requested in OR. FLUORO TIME 0:12IMPRESSION:Separate operative report will be issued by the physician performing the procedure.[id number] [id number] 14:44:20 Test Item Value Reference Range Interpretation Comments POC glucose (test code = 147 mg/dL 65-99 H Met er ID: [id number]) [id number] tor: Christiana Leandro Lab Interpretation (test Abnormal code = 70062-9) Joseph [id number] 10:22:35Raheem Mukherjee 10/28/2019 12:31 PMAirwayDate/Time: 10/28/2019 9:31 AMPerformed by: Raheem MukherjeeAuthorized by: Bre Bazan MD Location: ORUrgency: ElectiveDifficult Airway: No Anesthesiologist: Bre Bazan, RENETTAesident/CHISEL MORTISER OPERATOR/AA: Raheem MukherjeePerformed by: resident/CHISEL MORTISER OPERATOR/AAPreoxygenatedwith 100% O2: Yes Mask Ventilation: Easy maskFinal Airway Type: Endotracheal airwayFinal Endotracheal Airway: ETTCuffed: Yes Technique Used: Direct laryngoscopyDevices/Methods Used in Placement:Intubating styletInsertion Site: OralBlade Type: MillerLaryngoscope Blade/Videolaryngoscope Blade Size: 2ETT Size (mm): 7.0Cuff at minimum occlusion pressure: Yes Measured from: TeethETT to Teeth(cm): 20Placement Verified by: CO2 detection and direct visualization Laryngoscopic view: Grade I- full view of glottisRapid Sequence Induction (RSI): No Modified RSI: No Number of Attempts at Approach: 1 Atraumatic, teeth intact, soft bite block placed between molars bilaterallyBuellton MethodistArterial [id number] 10:21:03YoRaheem melvin 10/28/2019 10:22 AMArterial linePerformed by: Raheem MukherjeeAuthorized by: Bre Bazan MD Patient Location: ORStart Time: 10/28/2019 9:32 AMEnd Time: 10/28/2019 9:36 AMStaff: Anesthesiologist: Bre Bazan MD Performed by: AnesthesiologistPre-procedure: patient identified, IV checked, site and side verified, risks and benefits discussed, procedure verified, surgical consent complete, patient position confirmed, monitors and equipment checked and pre-op evaluation complete TIme Out Performed: 10/28/2019 9:26 AMIndications: Indications: hemodynamic monitoring Anesthesia: Anesthesia: GeneralProcedure Details: Arterial Line placement: Placed post induction Line placement site: RadialLine placement side: Right Arterial line gauge: 20 GNumber of attempts: 1Ultrasound guidance used: No Post-procedure: Post-procedure: Sterile dressing applied Post procedure circulation, sensation, movement: Normal Patient tolerance: Patient tolerated the procedure well with no immediate complicationsAlvin J. Siteman Cancer Centerkuldeep MethodistCALCULI URINARY WITH [id number] 13:10:00 Test Item Value Reference Range Interpretation Comments ST COLOR (test code = Brown () COLST) ST SIZE (test code = 6x3x1 mm () SIZST) ST WEIGHT (test code 17.4 mg () = WGTST) ST COMPOSITION (test Comment () Percent age (Represents code = COMPST) the % composi tion) ST CA OXALATE 95 % () MONOHYDRATE (test code = CAOXMST) ST CA PHOSPHATE (test 05 % () code = CAPHST) ST NIDUS (test code = Comment () Nidus composed of NIDUSST) Calcium oxalate monohydrate. ST PHOTO (test code = Comment () Calcul i report with PHOTST) photograph will follow via computer,ma dc or referral and information aide deliver y. ST COMMENT 3 (test Comment () Physician questions code = CMTST3) regarding [facility] culi Analysis contac [facility] at: . - XR FLUOROSCOPY 0-60 [id number] 10:56:00 Name: JOSE VELEZ CHRIS [place] : 1960 Age/S: 59 / F [id number] Unit #: [id number] Loc: [place] [address] Phys: Ry Slade MD Acct: [id number] Dis Date: Status: [place] [facility] [place] PHONE #: [phone] Exam Date: 07/10/2019 1025 FAX #: Reason: LITHOTRIPSY EXAMS: CPT: [id number] XR FLUOROSCOPY 0-60 MIN 89436 Fluoro Time: 20 SEC DAP (Gy m2): Air Kerma (mGy): C3 TIME OF STUDY: 07/10/2019 7:13 AM REASON FOR EXAM: LITHOTRIPSY COMPARISON: None. FINDINGS: 4 coned-down intraoperative fluoroscopic views of the left abdomen demonstrate postoperative changes of left ureteral stent placement The soft tissues and osseous structures are suboptimally evaluated secondary to fluoroscopic technique. Fluoroscopy time:21 seconds IMPRESSION: Intraoperative fluoroscopic views of left ureteral stent placement. Please see operative report at 1056 Reported and signed by: Abraham Reyes M.D. CC: Ry Slade MD; Audrey Souza MD PAGE 1 Signed Report Name: JOSE VELEZ TEQUILAFlorence [place] : 1960 Age/S: 59 / F [address] Unit #: [id number] Loc: [place] [address] Phys: Ry Slade MD Acct: [id number] Dis Date: Status: REG [facility] [place] PHONE #: [phone] Exam Date: 07/10/2019 1025 FAX #: Reason: LITHOTRIPSY EXAMS: CPT: [id number] XR FLUOROSCOPY 0-60 MIN 84928 Fluoro Time: 20 SEC DAP (Gy m2): Air Kerma (mGy): <Continued> Technologist: Diandra Lloyd RT(R) Trnscb Date/Time: 07/10/2019 (1056) [email or web address] Orig Print D/T: S: 07/10/2019 (7490) PAGE 2 Signed ReportGLUCOSE BEDSIDE [id number] 09:42:00 Test Item Value Reference Range Interpretation Comments GLUCOSE BEDSIDE TESTING (test code = 95 mg/dL 70-110 N GLUBED)
--- OUTSIDE RECORDS SUMMARY | 2020-10-12 08:04 | XMS REPORT | Summary of Care ---
:1960 Author Organization [facility] Address [address] [place] [address] Care Team Providers Name Role Phone Pcp, Does Not Have A Primary Care Provider Reason for Referral Radiology Services (Routine) Status Reason Specialty Diagnoses / Referred By Referred To Procedures Contact Contact New Request Diagnostic Diagnoses Chronic pain of right knee Tomi Hughes Radiology Procedures XR KNEE 3 VW RIGHT MD Jennifer [address] [place] [address] [place] [address] Reason for Visit Reason Comments Follow-up Right knee pain Encounter Details Date Type Department Care Team Description 09/22/2020 Office Visit [facility] Orthopaedic Tomi Hughes hronic pain of right Surgery- Bertha Rodriguez MD knee (Primary Dx) [address] [place] [place] [address] [place], [place] [phone] [address] Allergies Active Allergy Reactions Severity Noted Date Comments Sulfa (Sulfonamide Antibiotics) Nausea and/or Vomiting 09/13/2017 documented as of this encounter (statuses as of 09/28/2020) Medications Medication Sig Dispensed Refills Start Date [...] % gel affected area 4 times daily diclofenac 75 mg EC Take 1 tablet by 60 tablet 1 09/23/2020 Active tablet mouth 2 (two) times daily with meals. documented as of this encounter (statuses as of 09/28/2020) Active Problems Not on filedocumented as of this encounter (statuses as of 09/28/2020) Social History Tobacco Use Types Packs/Day Years [...] of this encounter Last Filed Vital Signs Vital Sign Reading Time Taken Comments Blood Pressure 142/82 09/22/2020 1:19 PM CDT Pulse 78 09/22/2020 1:19 PM CDT Temperature - - Respiratory Rate - - Oxygen Saturation - - Inhaled Oxygen Concentration - - Weight 73.5 kg (162 lb) 09/22/2020 1:18 PM CDT Height - - Body Mass Index 27.81 06/09/2019 4:02 PM CDT documented in this encounter Progress Notes Tomi Hughes MD - 09/22/2020 4:15 PM CDT Cc: Chief Complaint Patient presents with Follow-up Right knee pain Follow up Right knee pain Hugo Omer is a 60 year old female. Knee Pain Incident onset: many years ago - surgery There was no injury mechanism. The pain is present in the right knee. The quality of the pain is described as aching. The pain is at a severity of 7/10. The pain has been worsening since onset. Associated symptoms include a loss of motion. Associated symptoms c omments: Stiffness and swelling at the end of the day . She reports no foreign bodies present. The symptoms are aggravated by movement and weight bearing. She has tried immobilization and rest for the symptoms. Allergies Hugo is allergic to sulfa (sulfonamide antibiotics). Medications Outpatient Medications Prior to Visit Medication Sig Dispense Refill diclofenac 75 mg EC tablet Take 1 tablet by mouth 2 (two) times daily with meals. 60 tablet 1 Diclofenac Sodium (VOLTAREN) 1 % gel Apply 2mg-4mg to affected area 4 times daily 100 g 1 fludrocortisone 0.1 mg tablet hydrocortisone 10 mg tablet metformin ER 500 mg 24 hr tablet SYNTHROID 50 mcg tablet traZODONE 50 mg tablet valsartan 40 mg tablet No facility-administered medications prior to visit. Histories Past Medical History: Diagnosis Date Diabetes mellitus Hypertension Thyroid disease Past Surgical History: Procedure Laterality Date ENDOSCOPIC APPROACH TO PITUITARY (SHX) FRACTURE SURGERY HYSTERECTOMY Social History Socioeconomic History Marital status: Spouse name: Not on file Number of children: Not on file Years of education: Not on file Highest education level: Not on file Occupational History Not on file Social Needs Financial resource strain: Not on file Food insecurity Worry: Not on file Inability: Not on file Transportation needs Medical: Not on file Non-medical: Not on file Tobacco Use Smoking status: Never Smoker Smokeless tobacco: Never Used Substance and Sexual Activity Alcohol use: Not on file Drug use: Not on file Sexual activity: Not on file Lifestyle Physical activity Days per week: Not on file Minutes per session: Not on file Stress: Not on file Relationships Social connections Talks on phone: Not on file Gets together: Not on file Attends taoism service: Not on file Active member of club or organization: Not on file Attends meetings of clubs or organizations: Not on file Relationship status: Not on file Intimate partner violence Fear of current or ex partner: Not on file Emotionally abused: Not on file Physically abused: Not on file Forced sexual activity: Not on file Other Topics Concern Not on file Social History Narrative Not on file No family history on file. Review of Systems Constitutional: Negative. HENT: Negative. Eyes: Negative. Respiratory: Negative. Breasts: Negative. Cardiovascular: Negative. Gastrointestinal: Negative. Genitourinary: Negative. Musculoskeletal: Positive for joint swelling. Skin: Negative. Neurological: Negative. Psychiatric/Behavioral: Negative. Endocrine: Endocrine negative Vital Signs There were no vitals taken for this visit. Physical Exam Musculoskeletal: Comments: General: Well-developed well-nourished oriented to person place and time HEENT normocephalic atraumatic atraumatic pupils equal round reactive to light extraocular muscles intact Cervical thoracic and lumbar spine without focal deficit normal kyphosis and lordosis Chest clear to auscultation and percussion Cardiovascular regular rate and rhythm without gallop rub or murmur soft without organomegaly Normal bowel sounds Neurologic: Focal myotome or dermatomal deficits Vascular: Intact symmetrical bilateral upper and lower extremities Skin without stasis varicosities or breakdown Extremities without cyanosis clubbing or edema Lymphatics no peripheral lymphedema Psych normal mood and affect. Neurovascular function is intact. To include brisk capillary refill warm pink skin active motor function and sensory function intact. Assessment/Plan Right knee DJD Patient's knee(s) is/are wearing out and will eventually need a total knee replacement but will takepreventative measures prior to discussing surgery. Will take this in a stepwise fashion first beginning with NSAIDs. Next would be a cortisone injection. A cortisone injection will only help with the inflammatory response. Cortisone injections will be given no less than 3 months in a 3 year time frame. Hymalecular weight hylaronic acid injection series would follow cortisone injections. If the response is well to the cortisone this is usually an indication of how one will respond to Hymalecular weight hylaronic injections. These injections are given once weekly to the affected knee for 3 weeks. This can give at least 6 months of relief in 3 out of 4 people. If these steps do not help the last option would be to have a total knee replacement. The Rehab department will reach out to discuss making an appointment for an informational session called Total Replacement Boot Camp. This does not mean you are ready for a total knee replacement, it's simply preparation should you eventually decide to have/need a joint replacement. Diclofenac prescribed today, next step would be an injection. documented in this encounter Plan of Treatment Health Maintenance Due Date [...] topic documented as of this encounter Results XR KNEE 3 VW RIGHT (09/22/2020 1:03 PM CDT) Specimen Narrative Performed At This result has an attachment that is no t available. Narrowed joint interval medially PACS Retained ACL hardware Performing Organization Address [place] [place] PACS documented in this encounter Visit Diagnoses Diagnosis Chronic pain of right knee - Primary documented in this encounter documented as of this encounter
--- OUTSIDE RECORDS SUMMARY | 2020-10-12 08:04 | XMS REPORT | Summary of Care ---
:[address] [facility] Address [address] [place] [address] Care Team Providers Name Role Phone Pcp, Does Not Have A Primary Care Provider Reason for Referral Radiology Services (Routine) Status Reason Specialty Diagnoses / Referred By Referred To Procedures Contact Contact New Request Diagnostic Diagnoses Chronic pain of right knee Tomi Hughes Radiology Procedures XR KNEE 3 VW RIGHT MD Jennifer [address] [place] [address] [place] [address] Reason for Visit Reason Comments Follow-up Right knee pain Encounter Details Date Type Department Care Team Description 09/22/2020 Office Visit [facility] Orthopaedic Tomi Hughes hronic pain of right Surgery- Bertha Rodriguez MD knee (Primary Dx) [address] [place] [place] [address] [place], [place] [phone] [address] Allergies Active Allergy Reactions Severity Noted [...] file Gets together: Not on file Attends uatsdin service: Not on file Active member of [...] PACS Retained ACL hardware Performing Organization Address City/State/[facility] [place] Phone Number PACS documented in this encounter Visit Diagnoses Diagnosis Chronic pain of right knee - Primary documented in this encounter documented as of this encounter
[2020-10-12] MEDS ORDERED: NA CHLORIDE 0.9% 1,000 ML ONE ×2 (08:40→11:49)
[2020-10-12] MEDS ORDERED: DIAZEPAM 5 MG TABLET ONE (09:21)
[2020-10-12] MEDS ORDERED: HYDROCORTISONE SUC 100 MG INJ ONE (09:21)
[2020-10-12] MEDS ORDERED: WATER FOR INJ,STERILE 10 ML ONE (09:26)
[2020-10-12] MEDS: CEFOXITIN/SWI 1gm 1 GM/10 ML SYR ONE ×2 (09:38→10:35)
[2020-10-12] MEDS ORDERED: MIDAZOLAM HCL 2 MG/2 ML INJ ONE (09:51)
[2020-10-12] MEDS ORDERED: FENTANYL CITR 100 MCG/2 ML ONE ×2 (09:51→11:03)
[2020-10-12] MEDS ORDERED: propofoL 200 MG/20 ML VIAL IV ONE (09:51)
[2020-10-12] MEDS ORDERED: dexAMETHasone 10 MG/ML VIAL ONE (09:51)
[2020-10-12] MEDS ORDERED: ONDANSETRON 4 MG/2 ML VIAL ONE (09:51)
[2020-10-12] MEDS ORDERED: ROCURONIUM 50 MG/5 ML VIAL IV ONE (09:52)
[2020-10-12] MEDS ORDERED: LIDOCAINE 2% MPF 5 ML VIAL ONE (09:52)
[2020-10-12] MEDS ORDERED: GLYCOPYRROLATE 0.2 MG/ML SYR ONE (11:27)
[2020-10-12] MEDS ORDERED: NEOSTIGMINE 1 MG/ML -5 ML ONE (11:28)
[2020-10-12] MEDS ORDERED: KETOROLAC 30 MG/ML INJ ONE (11:28)
[2020-10-12] MEDS: HYDROMORPHONE HCL 1 MG/ML INJ ONE ×2 (11:44→11:59)
[2020-10-12] MEDS ORDERED: HYDROMORPHONE HCL 1 MG/ML INJ ONE (12:19)
[2020-10-12 12:22] VITALS: TEMP 97.2
--- NOTE | 2020-10-12 12:49 | OP ---
Date of Procedure: 10/12/2020 Surgeon: Sunil Saucedo MD Telecom Assistant: Yvonne Barr. Preoperative Diagnosis: Chronic cholecystitis and cholelithiasis. Postoperative Diagnosis: Chronic cholecystitis and cholelithiasis with extensive adhesions. Procedure: Laparoscopic cholecystectomy and lysis of adhesions. Intraoperative Consultation: Peng Figueredo MD Estimated Blood Loss: Minimal. Specimen: Gallbladder. Findings: As above. Anesthesia: General. Complications: None. Disposition: The patient tolerated the procedure in stable condition, taken to Recovery in good gene ral condition. Procedure In Detail: The patient was brought to the OR, placed in supine position. General anesthes ia begun. The patient was prepped and draped in usual sterile fashion. Marcaine 0.5% was infiltrate d locally. A 15-blade was used to make a 1 cm supraumbilical midline incision. Subcutaneous tissue was divided. Fascia was identified and divided. A #1 Vicryl stay suture was placed. Peritoneal cav ity was entered with sharp and blunt dissection. A 12 mm trocar was placed into the peritoneal cavit y under direct vision. Pneumoperitoneum was established and then three 5 mm trocars were placed, 1 i n the epigastrium just to the right of midline and 2 in the right subcostal region. Laparoscopy reve aled extensive adhesions omental and to the body, fundus and infundibulum, which were taken down with sharp and blunt dissection. Bleeding was controlled with cautery. There were extensive adhesions n ext to the cystic duct area as well, which were very difficult to identify. I got intraoperative sec ond opinion from Dr. Figueredo, who agreed and we stayed away from that region and we decided to disse ct the cystic artery very close to the infundibulum and part of the infundibulum as well and this was divided between clips after a stone in the cystic duct and moved back in the gallbladder and then th e cystic artery branches were identified and clipped and divided and then cautery was used to remove the gallbladder from the liver bed. There was some oozing noted because of all the inflammatory tiss ue that was present and Surgicel was placed after that the area was thoroughly irrigated. There was no evidence of active bleeding or bile leakage appreciated and then all trocars were removed under di rect vision. Stay sutures were tied to each other across the fascial defect. Subcutaneous wounds we re irrigated. Bleeding was controlled with cautery. A 3-0 chromic was used to reapproximate subcuta neous tissue and carley were used to close the skin. Sterile dressing was applied. The patient rich kened and taken to Recovery in good general condition. Discharge Note: The patient will go to Day Surgery and home when stable. Disposition: Home. Condition: Stable. Discharge Instructions: Resume home medications and diet. Activity as tolerated. No heavy lifting. Remove outer dressing in 2 days. Shower. Keep wound clean and dry. Follow up in my office in 2 w eeks. Call for appointment. Tylenol No.3 one tablet p.o. q.4 p.r.n. pain. Incentive spirometry as ordered. Please note, the patient was given perioperative steroids. YASMIN/GREG Voice ID: [id number] Report ID: [id number]
[2020-10-12] MEDS ORDERED: HYDROCODONE/APAP 7.5/325 MG TAB ONE (13:23)
[2020-10-12 16:12] VITALS: O2SAT 92
[2020-10-12 16:14] VITALS: BP 111/62
== END 2020-10-12 14:20 | disposition home or self-care (01) ==
LOC: OR 08:00
PROVIDERS: ATTEND Surgery
PROC: 0FT44ZZ Resection of Gallbladder, Percutaneous Endoscopic Approach (ICD-10-PCS; principal; 2020-10-12 09:00)
DX: K80.10 Calculus of gallbladder with chronic cholecystitis without obstruction (principal); Z20.828 Contact with and (suspected) exposure to other viral communicable diseases; I10 Essential (primary) hypertension; E11.9 Type 2 diabetes mellitus without complications; E07.9 Disorder of thyroid, unspecified; K66.0 Peritoneal adhesions (postprocedural) (postinfection)
CPT/HCPCS: 93005; 36415; 82947 ×2; 80076; 88304; 71046; 47562; U0002; J2704; J2250; J3010 ×2; J1170 ×2; J2710; J7030 ×2; J1720; J2405; J1100

== ENCOUNTER 2022-03-28 15:17 | Emergency (ER) | payer OTHER ==
--- OUTSIDE RECORDS SUMMARY | 2022-03-28 15:21 | XMS REPORT | Continuity of Care Document ---
:[address] [facility] t Address [address] [place] [address] Dr. [address]. [address] [place] [address] Care Team Providers Name Role Phone FRACISCO Attending Clinician Unavailable Jennifer Hughes MD Attending Clinician Jennifer HUGHES Attending Clinician Unavailable Luz Galvin MD Attending Clinician Luz GALVIN Attending Clinician Unavailable FRACISCO Admitting Clinician Unavailable IRIS THOMASON Admitting Clinician Unavailable Payers Payer Name Policy Type Policy Number Effective Date Expiration Date S ource Problems This patient has no known problems. Allergies, Adverse Reactions, Alerts Allergy Allergy Status Severity Reaction(s) Onset Inactive Treating Comm ents Source Name Type Date Date Clinician No Known DA Active U [facility] Allergie 07-09 Shereen s 00:00: d 00 Medical [place] Sulfa Propensi Active Nausea 2016-11 Univers (Sulfona ty to and/or 0-20 ity of mide adverse Vomiting 00:00: [place] Antibiot reaction 00 Medica l ics) s Branch SULFA Drug Active N/V 2016-11 Univers (SULFONA Class 0-20 ity of MIDE 00:00: [place] ANTIBIOT 00 Medical ICS) Branch Social History Social Habit Start Date Stop Date Quantity Comments Source Sex Assigned At [facility] Medical Branch Exposure to Not sure [facility] SARS-CoV-2 (event) Medica l Branch Tobacco use and 2020-09-22 2020-09-22 Never used [facility] [employer] [place] exposure 00:00:00 00:00:00 Medical Branch Smoking Status Start Date Stop Date Source Never smoker [facility] Medical Branch Medications Ordered Filled Start Stop Current Ordering Indication Dosage Frequency Signature Comments Components Source Medication Medication Date Date Medication? Clinician (SIG) Name Name diclofenac 2019-11 Yes 75mg Take 1 Unive rs 75 mg EC 0-30 tablet by ity of tablet 00:00: mouth 2 (two) Medical times Branch daily with meals. diclofenac 2019-11 Yes 75mg Take 1 Unive rs 75 mg EC 0-30 tablet by ity of tablet 00:00: mouth 2 (two) Medical times Branch daily with meals. diclofenac 2016-11 Yes 75mg Take 1 Unive rs 75 mg EC 0-20 tablet by ity of tablet 00:00: mouth 2 (two) Medical times Branch daily with meals. Diclofenac 2016-11 Yes Apply Univer s Sodium 0-20 2mg-4mg to ity of (VOLTAREN) 00:00: affected Benigno as 1 % gel 00 area 4 Medical times Branch daily diclofenac 2016-11 Yes 75mg Take 1 Unive rs 75 mg EC 0-20 tablet by ity of tablet 00:00: mouth 2 (two) Medical times Branch daily with meals. Diclofenac 2016-11 Yes Apply Univer s Sodium 0-20 2mg-4mg to ity of (VOLTAREN) 00:00: affected Benigno as 1 % gel 00 area 4 Medical times Branch daily diclofenac 2016-11 Yes 75mg Take 1 Unive rs 75 mg EC 0-20 tablet by ity of tablet 00:00: mouth 2 (two) Medical times Branch daily with meals. Diclofenac 2016-11 Yes Apply Univer s Sodium 0-20 2mg-4mg to ity of (VOLTAREN) 00:00: affected Benigno as 1 % gel 00 area 4 Medical times Branch daily diclofenac 2016-11 Yes 75mg Take 1 Unive rs 75 mg EC 0-20 tablet by ity of tablet 00:00: mouth 2 [place] (two) Medical times Branch daily with meals. Diclofenac 2016-11 Yes Apply Univer s Sodium 0-20 2mg-4mg to ity of (VOLTAREN) 00:00: affected Benigno as 1 % gel 00 area 4 Medical times Branch daily valsartan 2016-11 Yes Univers 40 mg 0-16 ity of tablet 00:00: [place] [facility] Branch valsartan 2017 Yes Univers 40 mg 0-16 ity of tablet 00:00: [place] [facility] Branch valsartan 2016-11 Yes Univers 40 mg 0-16 ity of tablet 00:00: [place] [facility] valsartan 2016-11 Yes Univers 40 mg 0-16 ity of tablet 00:00: [place] [facility] Branch SYNTHROID 2017 Yes Univers 50 mcg 0-14 ity of tablet 00:00: [place] [facility] Branch SYNTHROID 2016-11 Yes Univers 50 mcg 0-14 ity of tablet 00:00: [place] [facility] Branch SYNTHROID 2016-11 Yes Univers 50 mcg 0-14 ity of tablet 00:00: [place] [facility] SYNTHROID 2016-11 Yes Univers 50 mcg 0-14 ity of tablet 00:00: [place] [facility] metformin 2016-11 Yes Univers ER 500 mg 0-07 ity of 24 hr 00:00: [place] tablet [facility] Branch metformin 2017- Yes Univers ER 500 mg 0-07 ity of 24 hr 00:00: [place] tablet Medical Branch metformin 2016- Yes Univers ER 500 mg 0-07 ity of 24 hr 00:00: [place] tablet Medical Branch metformin 2017- Yes Univers ER 500 mg 0-07 ity of 24 hr 00:00: [place] tablet 00 [facility] Branch traZODONE 2017-0 Yes Univers 50 mg 9-11 ity of tablet 00:00: [place] [facility] Branch traZODONE 2017-0 Yes Univers 50 mg 9-11 ity of tablet 00:00: [place] [facility] traZODONE 2017-0 Yes Univers 50 mg 9-11 ity of tablet 00:00: [place] [facility] traZODONE 2017-0 Yes Univers 50 mg 9-11 ity of tablet 00:00: [place] [facility] fludrocorti 2017-0 Yes Univer s sone 0.1 mg 9-05 ity of tablet 00:00: [place] [facility] fludrocorti 2017-0 Yes Univer s sone 0.1 mg 9-05 ity of tablet 00:00: [place] [facility] fludrocorti 2017-0 Yes Univer s sone 0.1 mg 9-05 ity of tablet 00:00: [place] [facility] fludrocorti 2017-0 Yes Univer s sone 0.1 mg 9-05 ity of tablet 00:00: [place] [facility] hydrocortis Yes Univer s one 10 mg 8-28 ity of tablet 00:00: [place] [facility] hydrocortis 0 Yes Univer s one 10 mg 8-28 ity of tablet 00:00: [place] [facility] hydrocortis Yes Univer s one 10 mg 8-28 ity of tablet 00:00: [place] [facility] hydrocortis Yes Univer s one 10 mg 8-28 ity of tablet 00:00: [place] [facility] Vital Signs Vital Name Observation Time Observation Value Comments Source Systolic blood 2020-09-22 18:19:00 142 mm[Hg] Univer [facility]ity of [facility] Branch Diastolic blood 2020-09-22 18:19:00 82 mm[Hg] Unive rsity of [facility] Heart rate 2020-09-22 18:19:00 78 /min Universi ty [facility] [place] [facility] Body weight 2020-09-22 18:18:00 73.483 kg Universi ty [facility] [place] [facility] BMI 2020-09-22 18:18:00 27.81 kg/m2 Universi ty [facility] [place] [facility] Systolic blood 2020-09-22 18:19:00 142 mm[Hg] Univer sity of [facility] Branch Diastolic blood 2020-09-22 18:19:00 82 mm[Hg] Unive rsity of [facility] Heart rate 2020-09-22 18:19:00 78 /min Universi ty [facility] [place] [facility] Body weight 2020-09-22 18:18:00 73.483 kg Universi ty [facility] [place] [facility] BMI 2020-09-22 18:18:00 27.81 kg/m2 Universi ty [facility] [place] [facility] Procedures Procedure Date / Time Performed Performing Clinician Sourc e US ABDOMEN COMPLETE 2020-06-20 15:14:45 [facility] Start End Encounter Admission Attending Care Care Encounter Source Date/Time Date/Time Type Type Clinicians Facility Department ID 2022-03-14 2022-03-14 Outpatient [facility] [id number] [place] 00:00:00 00:00:[address] 2022-02-15 2022-02-15 Outpatient LIONBERGER, [facility] [id number] [place] 00:00:00 00:00:00 MARIELA [address] 2022-02-15 2022-02-15 Outpatient FRACISCO, [facility] [id number] [place] 00:00:00 00:00:00 MARIELA [address] 2022-01-30 2022-01-30 Outpatient FRACISCO, [place] [id number] [place] 00:00:00 00:00:00 MARIELA [address] 2022-01-26 2022-01-26 Outpatient FRACISCO, [facility] [id number] [place] 00:00:00 00:00:00 MARIELA 6[address] [facility] 2022-01-17 2022-01-17 Outpatient FRACISCO, [facility] [id number] [place] 00:00:00 00:00:00 MARIELA [address] [facility] 2022-01-17 2022-01-17 Outpatient [facility] [id number] [place] 00:00:00 00:00:[address] 2021-12-28 2021-12-28 Outpatient FRACISCO, [facility] [id number] [place] 00:00:00 00:00:00 MARIELA 991 [facility] i 2021-12-28 2021-12-28 Outpatient FRACISCO, [facility] [id number] [place] 00:00:00 00:00:00 MARIELA 794 [facility] i 2020-09-22 2020-09-22 [facility] [id number] Univers 13:03:49 23:59:00 Encounter Selwyn [facility] [id number] it of Surgical 4.2.7.2.686 [place] as Specialti [id number] Ut dical es 8[address] Branch [place] 2020-09-22 2020-09-22 [facility] [id number] Univers 16:15:00 16:15:00 [facility] [id number] 2020-09-22 [facility] [id number] Univers 16:15:00 16:15:00 [facility] 2020-09-22 2020-09-22 Office [place], [facility] [id number] 13:02:51 13:39:34 Visit [facility] [id number] Surgical 4.2.7.2.686 Specialti [id number] es 198 [place] 2020-09-22 2020-09-22 [facility] [id number] Univers 13:02:51 13:39:34 Visit [facility] [id number] it y of Surgical 4.2.7.2.686 [place] as Specialti [id number] Ut dical es 198 [facility] 2020-06-20 2020-06-20 [facility] [id number] Univers 09:19:00 23:59:00 Encounter Karen henson [place] [id number] ity of [place]7.2.686 [place] [id number] [facility] [address] [place] 2020-06-20 2020-06-20 Outpatient R [facility] [id number] Univers 00:00:00 00:00:00 KAREN Henson [id number] aiyana o jorge [facility] 2020-06-20 2020-06-20 Outpatient R [facility] [id number] Univers 00:00:00 00:00:00 KAREN Henson [facility] Results Test Description Test Time Test Comments Results Result Comments Source SARS-CoV-2 (COVID-19) RNA [Presence] in Respiratory sp ecimen by 2022-01-26 22:12:00 LEYDI with probe detection Test Item Value Reference Range Interpretation Comme nts SARS coronavirus RNA [Presence] in Isolate by LEYDI with probe Not de tected detection (test code = 76640-1) Whether patient is employed in a healthcare setting (test code = Un known 40770-2) Whether the patient has symptoms related to condition of interest U nknown (test code = 61632-5) Whether the patient was hospitalized for condition of interest Unkn own (test code = 85146-4) Whether the patient was admitted to intensive care unit (ICU) for U nknown condition of interest (test code = 39348-4) Whether patient resides in a congregate care setting (test code = U nknown 16212-0) status (test code = 18211-8) Unknown Date and time of symptom onset (test code = 88387-2) Unknown SARS-CoV-2 (COVID-19) RNA [Presence] in Respiratory specimen by LEYDI with probe [id number] 22:12:00 Test Item Value Reference Range Interpretation Comments SARS-CoV-2 (COVID-19) RNA Not detected [Presence] in Respiratory specimen by LEYDI with probe detection (test code = 69521-4) Whether patient is employed in a Unknown healthcare setting (test code = 86871-3) Whether the patient has symptoms Unknown related to condition of interest (test code = 64376-3) Whether the patient was Unknown hospitalized for condition of interest (test code = 34350-3) Whether the patient was admitted Unknown to intensive care unit (ICU) for condition of interest (test code = 42963-3) Whether patient resides in a Unknown congregate care setting (test code = 17908-5) status (test code = Unknown 72131-2) Date and time of symptom onset Unknown (test code = 66803-6) US ABDOMEN [id number] 16:16:31ULTRASOUND ABDOMEN: HISTORY: Recurrent epigastric abdominal pain,moderatley severe,nocturnal TECHNIQUE: Sonographic evaluation of the abdomen is performed. FINDINGS: Liver is normal in size and shape but demonstrates slightlyincreased echotexture.. No focal lesions are present within the liver.Portalvenous flow is in the normal direction. Portal vein measures 9.6 mm.No biliary tree dilation is noted. Common bile duct measures 2.6 mm. Gallbladder is normal. Multiple echogenic areas are seen withinthegallbladder. No wall thickening or pericholecystic fluid is present. The visualized portions of the pancreas are normal. Spleen is normal insize. The kidneys are normal in size, shape and appearance. No hydronephrosis orperirenal fluid is seen. The right kidney measures 10.0 x 4.3 x 4.5 cm andthe left kidney measures 10.2 x 4.4 x 4.4 cm. Trace amount of fluid is seenadjacent to the right kidney. The abdominal aorta is normal in caliber. CONCLUSIONS:1. Cholelithiasis2. Mild hepatic steatosisUtmb,Radiant Results Inft User - 06/20/2020 11:17 AM CDTULTRASOUND ABDOMEN: HISTORY: Recurrent epigastric abdominal pain,moderatley severe,nocturnalTECHNIQUE: Sonographic evaluation of the abdomen is performed.FINDINGS: Liver is normal in size and shape but demonstrates slightlyincreased echotexture.. No focal lesions are present within the liver.Portal venous flow is in the normal direction. Portal vein measures 9.6 mm.No biliary tree dilation is noted. Common bile duct measures 2.6 mm. Gallbladder is normal. Multiple echogenic areas are seen within thegallbladder. No wall thickening or pericholecysticfluid is present.The visualized portions of the pancreas are normal. Spleen is normal insize.The kidneys are normal in size, shape and appearance. No hydronephrosis orperirenal fluid is seen. The rightkidney measures 10.0 x 4.3 x 4.5 cm andthe left kidney measures 10.2 x 4.4 x 4.4 cm. Trace amount offluid is seenadjacent to the right kidney.The abdominal aorta is normal in caliber. CONCLUSIONS:1. Cholelithiasis2. 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 ST COMMENT 3 (test Comment () Physician questions code = CMTST3) regarding Khoa culi Analysis contac tLabCorp at: [phone] 7. - XR FLUOROSCOPY 0-60 [id number] 10:56:00 Name: JOSE VELEZ [place] : 1960 Age/S: 59 / F [address] Unit #: [id number] Loc: [place] [address] Phys: Ry Slade MD Acct: [id number] Dis Date: Status: REG [facility] PHONE #: [phone] Exam Date: 07/10/2019 1025 FAX #: Reason: LITHOTRIPSY EXAMS: CPT: [id number] XR FLUOROSCOPY 0-60 MIN 88068 Fluoro Time: 20 SEC DAP (Gy m2): [...] stent placement. Please see operative report at 1057 Reported and signed by: Abraham Reyes M.D. CC: Ry Slade MD; Audrey Souza MD PAGE 1 Signed Report Name: JOSE VELEZ [place] : 1960 Age/S: 59 / F [address] Unit #: [id number] Loc: [place] [address] Phys: Ry Slade MD Acct: [id number] Dis Date: Status: REG [facility] PHONE #: [phone] Exam Date: 07/10/2019 1023 FAX #: Reason: LITHOTRIPSY EXAMS: CPT: [id number] XR FLUOROSCOPY 0-60 MIN 77198 Fluoro Time: 20 SEC DAP (Gy m2): Air Kerma (mGy): <Continued> Technologist: Diandra Lloyd RT(R) Trnscb Date/Time: 07/10/2019 (5539) [email or web address] Orig Print D/T: S: 07/10/2019 (4597) PAGE 2 Signed ReportGLUCOSE BEDSIDE [id number] 09:42:00 Test Item Value Reference Range Interpretation Comments GLUCOSE BEDSIDE TESTING (test code = 95 mg/dL 70-110 N GLUBED)
[2022-03-28] MEDS ORDERED: NA CHLORIDE 0.9% 1,000 ML ONE (16:22)
[2022-03-28] MEDS ORDERED: ONDANSETRON 4 MG/2 ML VIAL ONE (16:22)
[2022-03-28] MEDS ORDERED: FAMOTIDINE 20 MG/2 ML VIAL IV ONE (16:22)
[2022-03-28 16:26] LABS: Absolute Lymphocytes (CBC) 2.4 K/uL (0.7-4.9); Hematocrit 40.1 % (36.0-45.0); Lymphocytes % 25.7 % (15.3-44.8); MPV 7.3 fL (7.6-11.3); RBC Red Blood Cell Count 4.78 M/uL (3.86-4.86)
[2022-03-28 16:43] LABS: Albumin 3.6 g/dL (3.4-5.0); Bilirubin Total 0.4 mg/dL (0.2-1.0); Calcium Oxalate Crystals- Ur PRESENT (NONE SEEN); Magnesium 1.9 mg/dL (1.8-2.4); Potassium 3.4 mmol/L (3.5-5.1); Protein, Total 7.1 g/dL (6.4-8.2); Urine Bacteria <20 /HPF (<20); Urine Mucus 2+ /HPF (NONE SEEN); Urine RBC <5 /HPF (NONE SEEN)
--- NOTE | 2022-03-28 17:32 | RAD REPORT ---
EXAM DESCRIPTION: CTAbdomen Pelvis W Contrast - 03/28/2022 5:19 pm CLINICAL HISTORY: Abdominal pain, acute, nonlocalized COMPARISON: No comparisons TECHNIQUE: CT of the abdomen and pelvis was performed. All CT scans are performed using dose optimization technique as appropriate and may include automated exposure control or mA/KV adjustment according to patient size. FINDINGS: Lower chest: No acute abnormality. Small hiatal hernia Liver: No acute abnormality or suspicious lesions. Biliary: Cholecystectomy. No biliary ductal dilatation. Stomach: No significant focal abnormality. Duodenum: No significant focal abnormality. Pancreas: No significant abnormality. Spleen: No significant abnormality. Adrenal: Adrenalectomy bilaterally. Kidney/ureter: No hydronephrosis. No renal calculi. Retroperitoneum: No retroperitoneal adenopathy. Vascular: No aneurysm. Bowel: Normal appendix.. Peritoneum: No ascites or free air. Bladder: Grossly unremarkable. Reproductive: No adnexal masses. Hysterectomy Bones: No acute fracture. Moderate disc height loss L5-S1 . Other: n/a IMPRESSION: No acute intra-abdominal or pelvic finding. Normal appendix.
[2022-03-28] MEDS ORDERED: POTASSIUM 25 MEQ EFFERV TAB ONE (18:42)
--- NOTE | 2022-03-28 18:55 | EDPHYS ---
Physician Documentation [facility] Name: Hugo Omer Age: 62 yrs Sex: Female : 1960 Arrival Date: 03/28/2022 Time: 15:19 Bed 6 Private MD: ED Physician Ziyad Burroughs HPI: 03/28 16:00 This 62 yrs old Female presents to ER via Wheelchair with complaints of cp Nausea/Vomiting/Diarrhea, Abdominal Pain. 16:00 The patient presents to the emergency department with nausea, that is moderate, cp vomiting, that is intermittent, abdominal pain, of the mid abdomen. Onset: The symptoms/episode began/occurred for weeks, symptoms wax and wane. Associated signs and symptoms: Pertinent positives: anorexia, weight loss, Pertinent negatives: constipation, diarrhea, fever, GI bleeding. Severity of symptoms: in the emergency department the symptoms are unchanged despite home interventions. 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 - Social history:: Smoking status: Patient denies any tobacco usage or history of. ROS: 16:05 Constitutional: Positive for poor PO intake, weight loss, Negative for body aches, cp chills, fever. 16:05 Eyes: Negative for injury, pain, redness, and discharge. cp 16:05 ENT: Negative for ear pain, sore throat, difficulty swallowing, difficulty handling secretions. 16:05 Cardiovascular: Negative for chest pain, palpitations. 16:05 Respiratory: Negative for cough, shortness of breath, wheezing. 16:05 Abdomen/GI: Positive for abdominal pain, nausea and vomiting, Negative for diarrhea, constipation, hematemesis, black/tarry stool, rectal bleeding. 16:05 Back: Negative for radiated pain. 16:05 Neuro: Negative for altered mental status, headache, weakness. 16:05 All other systems are negative. Exam: 16:10 Constitutional: The patient appears in no acute distress, alert, awake, cp non-diaphoretic, non-toxic, well developed, well nourished. 16:10 Head/Face: Normocephalic, atraumatic. cp 16:10 Eyes: Periorbital structures: appear normal, Conjunctiva: normal, no exudate, no injection, Sclera: no appreciated abnormality, Lids and lashes: appear normal, bilaterally. 16:10 ENT: External ear(s): are unremarkable, Nose: is normal, Mouth: Lips: moist, Oral mucosa: pink and intact, moist, Posterior pharynx: Airway: no evidence of obstruction, patent. 16:10 Chest/axilla: Inspection: normal. 16:10 Cardiovascular: Rate: normal, Rhythm: regular, Edema: is not appreciated, JVD: is not appreciated. 16:10 Respiratory: the patient does not display signs of respiratory distress, Respirations: normal, no use of accessory muscles, no retractions, labored breathing, is not present, Breath sounds: are clear throughout, no decreased breath sounds, no stridor, no wheezing. 16:10 Abdomen/GI: Inspection: abdomen appears normal, Bowel sounds: active, all quadrants, Palpation: soft, in all quadrants, mild abdominal tenderness, in the mid abdomen, rebound tenderness, is not appreciated, voluntary guarding, is not appreciated, involuntary guarding, is not appreciated. 16:10 Back: CVA tenderness, is absent. Vital Signs: 15:45 BP 123 / 74; Pulse 95; Resp 17; Temp 97.2; Pulse Ox 100% ; Weight 70.76 kg; Height 5 jl7 ft. 4 in. (162.56 cm); Pain 5/10; 16:34 BP 110 / 66; Pulse 80; Resp 17; Pulse Ox 100% ; jh6 15:45 Body Mass Index 26.78 (70.76 kg, 162.56 cm) jl7 MDM: 15:37 Patient medically screened. cp 18:55 Data reviewed: vital signs, nurses notes, lab test result(s), radiologic studies, CT cp scan. 18:55 Differential diagnosis: gastritis, pancreatitis, viral gastroenteritis, cp gastroenteritis, choledocholithiases. 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 Response to treatment: the patient's symptoms have mildly improved after treatment, VSS. Nausea and pain improved. Vomiting resolved and patient observed tolerating po fluids. Will discharge to home for continued monitoring. 03/28 15:56 Order name: CBC with Diff; Complete Time: 16:44 cp 03/28 16:45 Interpretation: Normal except: MCV 83.9; MPV 7.3. cp 03/28 15:56 Order name: CMP; Complete Time: 16:44 cp 03/28 16:45 Interpretation: Normal except: NA 134; K 3.4; CL 97; GLUC 147; GFR 49; A/G 1.0. cp 03/28 15:56 Order name: Lipase; Complete Time: 16:44 cp 03/28 15:56 Order name: Urine Microscopic Only; Complete Time: 16:44 cp 03/28 15:56 Order name: CT Abd/Pelvis - IV Contrast Only; Complete Time: 18:16 cp 03/28 18:16 Interpretation: Report reviewed. cp 03/28 15:56 Order name: Magnesium; Complete Time: 16:44 cp 03/28 15:56 Order name: IV Saline Lock; Complete Time: 17:22 cp 03/28 15:56 Order name: Labs collected and sent; Complete Time: 17:22 cp 03/28 15:56 Order name: Urine Dipstick-Ancillary (obtain specimen); Complete Time: 17:22 cp Administered Medications: 14:20 Drug: NS 0.9% 500 ml Route: IV; Rate: bolus; Site: right antecubital; 6 16:25 Drug: Pepcid (famotidine) 20 mg Route: IVP; Site: right antecubital; 6 19:21 Follow up: Response: No adverse reaction lg3 16:25 Drug: Zofran (Ondansetron) 4 mg Route: IVP; Site: right antecubital; 6 19:21 Follow up: Response: No adverse reaction lg3 16:25 Drug: NS 0.9% 500 ml Route: IV; Rate: 125 ml/hr; Site: right antecubital; [facility] emergency room 19:01 Drug: Potassium Effervescent Tablet 25 mEq Route: PO; 6 19:21 Follow up: Response: No adverse reaction lg3 Disposition Summary: 03/28/22 18:55 Discharge Ordered Location: Home cp Problem: new cp Symptoms: have improved cp Condition: Stable cp Diagnosis - Nausea with vomiting, unspecified cp - Abdominal pain, unspecified cp Followup: cp - With: Private Physician - When: 2 - 3 days - Reason: Recheck today's complaints Discharge Instructions: - Discharge Summary Sheet cp - Abdominal Pain, Adult cp - Nausea and Vomiting, Adult cp Forms: - Medication Reconciliation Form cp - Thank You Letter cp - Antibiotic Education cp - Prescription Opioid Use cp Prescriptions: - Protonix 40 mg Oral Tablet - take 1 tablet by ORAL route once daily; 30 tablet; Refills: 0, Product cp Selection Permitted - Zofran 4 mg Oral Tablet - take 1 tablet by ORAL route every 12 hours As needed; 20 tablet; Refills: 0, cp Product Selection Permitted Addendum: 04/02/2022 19:02 Co-signature as Attending Physician, Ziyad Burroughs MD. r n Signatures: Dispatcher [employer] EDZiyad Urbina MD MD rn Page, Corey, PA PA cp Leal, Jahala RN RN jl7 Veena Powers RN RN jh6 Kaya Bryan RN lg3
--- NOTE | 2022-03-28 18:55 | ER ---
Nurse's Notes [facility] Name: Hugo Omer Age: 62 yrs Sex: Female : 1960 Arrival Date: 03/28/2022 Time: 15:19 Bed 6 Private MD: Diagnosis: Nausea with vomiting, unspecified;Abdominal pain, unspecified Presentation: 03/28 15:45 Chief complaint: Patient states: N/V, decreased appetite for a couple months since jl7 having my gallbladder out, worsening over the last few days. Coronavirus screen: At this time, the client does not indicate any symptoms associated with coronavirus-19. Ebola Screen: No symptoms or risks identified at this time. Initial Sepsis Screen: Does the patient meet any 2 criteria? No. Patient's initial sepsis screen is negative. Does the patient have a suspected source of infection? No. Patient's initial sepsis screen is negative. Risk Assessment: Do you want to hurt yourself or someone else? Patient reports no desire to harm self or others. Onset of symptoms is unknown. Care prior to arrival: None. 15:45 Method Of Arrival: Wheelchair [facility] 15:45 Acuity: TASHIA 3 jl7 Triage Assessment: 15:47 General: Appears in no apparent distress. uncomfortable, Behavior is calm, cooperative, jl7 appropriate for age. Pain: Complains of pain in abdomen Pain currently is 5 out of 10 on a pain scale. GI: Reports anorexia, nausea, vomiting. 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 - Social history:: Smoking status: Patient denies any tobacco usage or history of. Screenin:50 Abuse screen: Denies threats or abuse. jh6 15:50 Nutritional screening: No deficits noted. Tuberculosis screening: No symptoms or risk 6 factors identified. Fall Risk Assessment: 15:50 General: Appears in no apparent distress. comfortable, Behavior is calm, cooperative. jh6 15:50 Pain: Complains of pain in epigastric area Pain currently is 4 out of 10 on a pain 6 scale. Quality of pain is described as burning, Is continuous, Aggravated by eating, drinking, Noted to be guarding. 16:35 GI: Abdomen is flat, non-distended, Bowel sounds present X 4 quads. hyperactive in jh6 right upper quadrant, left upper quadrant, right lower quadrant and left lower quadrant Reports lower abdominal pain, upper abdominal pain, diarrhea, nausea, vomiting. 19:26 Reassessment: Patient appears in no apparent distress at this time. No changes from lg3 previously documented assessment. Patient and/or family updated on plan of care and expected duration. Pain level reassessed. Patient is alert, oriented x 3, equal unlabored respirations, skin warm/dry/pink. Patient states feeling better. Patient states symptoms have improved. Vital Signs: 15:45 BP 123 / 74; Pulse 95; Resp 17; Temp 97.2; Pulse Ox 100% ; Weight 70.76 kg; Height 5 jl7 ft. 4 in. (162.56 cm); Pain 5/10; 16:34 BP 110 / 66; Pulse 80; Resp 17; Pulse Ox 100% ; jh6 15:45 Body Mass Index 26.78 (70.76 kg, 162.56 cm) jl7 ED Course: 15:19 Patient arrived in ED. as 15:20 Demian Chance PA is PHCP. cp 15:33 Ziyad Burroughs MD is Attending Physician. cp 15:37 Carina Bedoya, DHRUV is Primary Nurse. ph 15:47 Triage completed. jl7 15:47 Arm band placed on right wrist. jl7 15:50 Bed in low position. Call light in reach. Side rails up X 1. jh6 16:20 No provider procedures requiring assistance completed. Inserted saline lock: 20 gauge 6 in right antecubital area, using aseptic technique. Blood collected. 17:[address] 6 17:21 CT Abd/Pelvis - IV Contrast Only In Process Unspecified. EDMS 19:17 Primary Nurse role handed off by Carina Bedoya RN mw2 19:20 Kaya Bryan, RN is Primary Nurse. lg3 19:27 IV discontinued, intact, bleeding controlled, No redness/swelling at site. Pressure lg3 dressing applied. Administered Medications: 14:20 Drug: NS 0.9% 500 ml Route: IV; Rate: bolus; Site: right antecubital; jh6 16:25 Drug: Pepcid (famotidine) 20 mg Route: IVP; Site: right antecubital; 6 19:21 Follow up: Response: No adverse reaction lg3 16:25 Drug: Zofran (Ondansetron) 4 mg Route: IVP; Site: right antecubital; jh6 19:21 Follow up: Response: No adverse reaction lg3 16:25 Drug: NS 0.9% 500 ml Route: IV; Rate: 125 ml/hr; Site: right antecubital; jh6 19:01 Drug: Potassium Effervescent Tablet 25 mEq Route: PO; jh6 19:21 Follow up: Response: No adverse reaction lg3 Outcome: 18:55 Discharge ordered by . cp 19:26 Discharged to home ambulatory, with family. lg3 19:26 Condition: stable 19:26 Discharge instructions given to patient, Instructed on discharge instructions, follow up and referral plans. medication usage, Demonstrated understanding of instructions, follow-up care, medications, Prescriptions given X 2. 19:27 Patient left the ED. lg3 Signatures: Dispatcher [employer] EDMS Sivan Figueredo as Carina Bedoya, RN RN Demian Feldman PA PA cp Bala Badillo RN RN jl7 Julisa Garcia mw2 Kaya Bryan, DHRUV RN lg3 Veena Powers RN RN jh6
[2022-03-28 20:25] VITALS: TEMP 97.2; O2SAT 100
[2022-03-28 20:26] VITALS: BP 110/66
== END 2022-03-28 19:27 | disposition home or self-care (01) ==
LOC: ER 15:17
DX: R11.2 Nausea with vomiting, unspecified (principal); R10.9 Unspecified abdominal pain; E11.9 Type 2 diabetes mellitus without complications; I10 Essential (primary) hypertension; E03.9 Hypothyroidism, unspecified; Z79.4 Long term (current) use of insulin; Z88.2 Allergy status to sulfonamides
CPT/HCPCS: 85025; 36415; 83735; 81015; 83690; 80053; 74177; 96375; 96374; 99284; Q9967; J7030; J2405; J3490

== ENCOUNTER 2022-07-06 12:37 | Emergency (ER) | payer OTHER ==
--- OUTSIDE RECORDS SUMMARY | 2022-07-06 12:42 | XMS REPORT | Continuity of Care Document ---
:1960 Author Organization [facility] t Address [address] [place] [address] [address]. [address]. [address] [place] [address] Care Team Providers Name Role Phone JOCELIN ARGUETA Attending Clinician Unavailable MARIELA YAP Attending Clinician Unavailable Selwyn Urban MD Attending Clinician SELWYN URBAN Attending Clinician Unavailable Karen Gonzalez MD Attending Clinician KAREN GONZALEZ Attending Clinician Unavailable MARIELA YAP Admitting Clinician Unavailable IRIS THOMASON Admitting Clinician Unavail able Payers Payer Name Policy Type Policy Number Effective Date Expiration Date S ource Problems This patient has no known problems. Allergies, Adverse Reactions, Alerts Allergy Allergy Status Severity Reaction(s) Onset Inactive Treating Comm ents Source Name Type Date Date Clinician No Known DA Active U [facility] Allergie 8-15 [place] [facility] Sulfa Propensi Active Nausea 2016-11 Univers (Sulfona ty to and/or 0-20 ity of mide adverse Vomiting 00:00: [place] Antibiot reaction 00 Medica l ics) s Branch SULFA Drug Active N/V 2016-11 Univers (SULFONA Class 0-20 ity of MIDE 00:00: [place] ANTIBIOT 00 Medical ICS) Branch Social History Social Habit Start Date Stop Date Quantity Comments Source Sex Assigned At [facility] Medical Branch Exposure to [facility] sure [facility] SARS-[facility]-2 (event) Medica l Branch Tobacco use and 2020-09-22 2020-09-22 Never used [facility] exposure 00:00:00 00:00:00 Medical Branch Smoking Status Start Date Stop Date Source Never smoker [facility] xa Medical Branch Medications Ordered Filled Start Stop [...] % gel 00 area 4 Medical times [place] daily valsartan 2016-11 Yes Univers 40 mg 0-16 ity of tablet 00:00: [place] [facility] valsartan 2016-11 Yes Univers 40 mg 0-16 ity of tablet 00:00: [address] valsartan 2016-11 Yes Univers 40 mg 0-16 ity of tablet 00:00: [place] [facility] valsartan 2016-11 Yes Univers 40 mg 0-16 ity of tablet 00:00: [address] SYNTHROID 2016-11 Yes Univers 50 mcg 0-14 ity of tablet 00:00: [address] SYNTHROID 2016-11 Yes Univers 50 mcg 0-14 ity of tablet 00:00: [address] SYNTHROID 2016-11 Yes Univers 50 mcg 0-14 ity of tablet 00:00: [address] SYNTHROID 2016-11 Yes Univers 50 mcg 0-14 ity of tablet 00:00: [address] metformin 2016-11 Yes Univers ER 500 mg 0-07 ity of 24 hr 00:00: [place] tablet [facility] metformin 2016-11 Yes Univers ER 500 mg 0-07 ity of 24 hr 00:00: [place] tablet [facility] metformin 2016-11 Yes Univers ER 500 mg 0-07 ity of 24 hr 00:00: [place] tablet [facility] metformin 2016-11 Yes Univers ER 500 mg 0-07 ity of 24 hr 00:00: [place] tablet [facility] traZODONE 2017 Yes Univers 50 mg 9-11 ity of tablet 00:00: [address] traZODONE 2017- Yes Univers 50 mg 9-11 ity of tablet 00:00: [address] traZODONE 2017 Yes Univers 50 mg 9-11 ity of tablet 00:00: [address] traZODONE 2017- Yes Univers 50 mg 9-11 ity of tablet 00:00: [address] fludrocorti Yes Univer s sone 0.1 mg 9-05 ity of tablet 00:00: [address] fludrocorti 2017 Yes Univer s sone 0.1 mg 9-05 ity of tablet 00:00: [address] fludrocorti 2017 Yes Univer s sone 0.1 mg 9-05 ity of tablet 00:00: [place] [facility] fludrocorti 20170 Yes Univer s sone 0.1 mg 9-05 ity of tablet 00:00: [place] [facility] hydrocortis 20170 Yes Univer s one 10 mg 8-28 ity of tablet 00:00: [place] [facility] hydrocortis 20170 Yes Univer s one 10 mg 8-28 ity of tablet 00:00: [place] [facility] hydrocortis 0 Yes Univer s one 10 mg 8-28 ity of tablet 00:00: [place] [facility] hydrocortis 0 Yes Univer s one 10 mg 8-28 ity of tablet 00:00: [place] [facility] Vital Signs Vital Name Observation Time Observation Value Comments Source Systolic blood 2020-09-22 18:19:00 142 mm[Hg] Univer sity [facility] Diastolic blood 2020-09-22 18:19:00 82 mm[Hg] [facility] [place] Heart rate 2020-09-22 18:19:00 78 /min Universi ty [facility] Body weight 2020-09-22 18:18:00 73.483 kg Universi ty [facility] BMI 2020-09-22 18:18:00 27.81 kg/m2 Universi ty [facility] Systolic blood 2020-09-22 18:19:00 142 mm[Hg] [facility] [place] Diastolic blood 2020-09-22 18:19:00 82 mm[Hg] [facility] [place] Heart rate 2020-09-22 18:19:00 78 /min Universi ty [facility] Medical [place] Body weight 2020-09-22 18:18:00 73.483 kg Universi ty [facility] Medical Branch BMI 2020-09-22 18:18:00 27.81 kg/m2 Universi [facility] Procedures Procedure Date / Time Performed Performing Clinician Diana e US ABDOMEN COMPLETE 2020-06-20 15:14:45 [facility] En[facility] Start End Encounter Admission Attending Care Care Encounter Source Date/Time Date/Time Type Type Clinicians Facility Department ID 2022-04-24 2022-04-24 Outpatient WEINER, [facility] [id number] [place] 00:00:00 00:00:00 JOCELIN [address] 2022-04-20 2022-04-20 Outpatient WEINER, [facility] [id number] [place] 00:00:00 00:00:00 JOCELIN [address] 2022-04-12 2022-04-12 Outpatient WEINER, [facility] [id number] [place] 00:00:00 00:00:00 JOCELIN [address] 2022-03-14 2022-03-14 Outpatient [facility] [id number] [place] 00:00:00 00:00:[address] 2022-02-15 2022-02-15 Outpatient LIONBERGER, [facility] [id number] [place] 00:00:00 00:00:00 MARIELA [address] 2022-02-15 2022-02-15 Outpatient LIONBERGER, [facility] [id number] [place] 00:00:00 00:00:00 MARIELA [address] 2022-01-30 2022-01-30 Outpatient LIONBERGER, [facility] [id number] [place] 00:00:00 00:00:00 MARIELA [address] 2022-01-26 2022-01-26 Outpatient LIONBERGER, [facility] [id number] [place] 00:00:00 00:00:00 MARIELA [address] 2022-01-17 2022-01-17 Outpatient [facility] [id number] [place] 00:00:00 00:00:[address] 2022-01-17 2022-01-17 Outpatient LIONBERGER, [facility] [id number] [place] 00:00:00 00:00:00 MARIELA [address] 2021-12-28 2021-12-28 Outpatient LIONBERGER, [facility] [id number] [place] 00:00:00 00:00:00 MARIELA [address] 2021-12-28 2021-12-28 Outpatient LIONBERGER, [facility] [id number] [place] 00:00:00 00:00:00 MARIELA [address] 2020-09-22 2020-09-22 [facility] [id number] Univers 13:03:49 23:59:00 Encounter Selwyn Rodriguez [facility] [id number] ity of Surgical 4.2.7.2.686 [place] as Specialti [id number] [place]ical [place] 809 [facility] 2020-09-22 2020-09-22 Outpatient R WILMAR [facility] [id number] Univers 16:15:00 16:15:00 SELWYN [id number] itrobb [facility] 2020-09-22 2020-09-22 [facility] [id number] [facility] 16:15:00 16:15:00 SELWYN bronson [facility] 2020-09-22 2020-09-22 [facility] [id number] Univers 13:02:51 13:39:34 Visit Selwyn Rodriguez [facility] [id number] it y of Surgical 4.2.7.2.686 [place] as Specialti [id number] [place] 198 [facility] 2020-09-22 2020-09-22 Office Wilmar [facility] [id number] 13:02:51 13:39:34 Visit Selwyn Rodriguez [facility] [id number] Surgical [id number] Specialti [id number] es [address] [place] [address] 2020-06-20 2020-06-20 [facility] [id number] [facility] 09:19:00 23:59:00 Encounter Karen reynaga [place] [id number] ity of [place] 4.2.7.2.686 [place] [facility] [id number] [facility] 806 [place] 2020-06-20 2020-06-20 Outpatient [facility] [place] [id number] Univers 00:00:00 00:00:00 KAREN Reynaga [id number] aiyana patel [facility] 2020-06-20 2020-06-20 Outpatient R [facility] [id number] [facility] 00:00:00 00:00:00 KAREN Reynaga [facility] Results Test Description Test Time Test Comments Results Result Comments Source SARS-CoV-2 (COVID-19) RNA [Presence] in Respiratory sp ecimen by 2022-01-26 22:12:00 LEYDI with probe detection Test Item Value Reference Range Interpretation Comme nts SARS coronavirus RNA [Presence] in Isolate by LEYDI with probe Not de tected detection (test code = 21323-9) Whether patient is employed in a healthcare setting (test code = Un known 83969-9) Whether the patient has symptoms related to condition of interest U nknown (test code = 40927-7) Whether the patient was hospitalized for condition of interest Unkn own (test code = 64539-6) Whether the patient was admitted to intensive care unit (ICU) for U nknown condition of interest (test code = 52729-8) Whether patient resides in a congregate care setting (test code = U nknown 67879-1) status (test code = 25059-5) Unknown Date and time of symptom onset (test code = 49503-5) Unknown SARS-CoV-2 (COVID-19) RNA [Presence] in Respiratory specimen by LEYDI with probe [id number] 22:12:00 Test Item Value Reference Range Interpretation Comments SARS-CoV-2 (COVID-19) RNA Not detected [Presence] in Respiratory specimen by LEYDI with probe detection (test code = 03736-4) Whether patient is employed in a Unknown healthcare setting (test code = 66234-9) Whether the patient has symptoms Unknown related to condition of interest (test code = 01217-0) Whether the patient was Unknown hospitalized for condition of interest (test code = 30804-3) Whether the patient was admitted Unknown to intensive care unit (ICU) for condition of interest (test code = 35897-5) Whether patient resides in a Unknown congregate care setting (test code = 89646-3) status (test code = Unknown 39877-3) Date and time of symptom onset Unknown (test code = 66505-8) US ABDOMEN [id number] 16:16:31ULTRASOUND ABDOMEN: HISTORY: Recurrent epigastric abdominal pain,moderatley [...] seen within thegallbladder. No wall thickening or pericholecystic fluid is present. The visualized portions of thepancreas are normal. Spleen is normal insize. The kidneys are normal in size, shape and appearance. No hydronephrosis orperirenal fluid is seen. The right kidney measures 10.0 x 4.3 x 4.5 cm andthe left kidney measures 10.2 x 4.4 x 4.4 cm. Trace amount of fluid is seenadjacent to the right kidney. Theabdominal aorta is normal in caliber. CONCLUSIONS:1. Cholelithiasis2. Mild hepatic steatosisUtmb, Radiant Results Inft User - 06/20/2020 11:17 AM CDTULTRASOUND ABDOMEN: HISTORY: Recurrent epigastric abd ominal pain,moderatley severe,nocturnalTECHNIQUE: Sonographic evaluation of the abdomen [...] seen within thegallbladder. No wall thickening or pericholecystic fluid is present.The visualized portions of the pancreas are normal. Spleen is normal insize.The kidneys are normal in size, shape and appearance. No hydronephrosis orperirenal fluid is seen. The right kidney measures 10.0 x 4.3 x 4.5 cm andthe left kidney measures 10.2 x 4.4 x 4.4 cm. Trace amount of fluid is seenadjacent to the right kidney.The abdominal aorta is normal in caliber. CONCLUSIONS:1. Cholelithiasis2. Mild hepatic steatosisUnThe [facility] CenterCALCULI [facility] WITH PHOTO 2019-07-15 13:10:00 Test Item Value Reference Range Interpretation [...] photograph will follow via computer,ma il or product management consultant deliver y. ST COMMENT 3 (test Comment () Physician questions code = CMTST3) regarding Khoa culi Analysis contac tLabCorp at: . - XR FLUOROSCOPY 0-60 [id number] 10:56:00 Name: [facility]ER [facility] 1960 Age/S: 59 / F [address] [address] [employer] Unit #: [id number] Loc: [place] [address] Phys: Ry Slade MD Acct: [id number] Dis Date: Status: [facility] PHONE #: [phone] Exam Date: 07/10/2019 1025 FAX #: Reason: LITHOTRIPSY EXAMS: CPT: [id number] XRFLUOROSCOPY 0-60 MIN 12201 Fluoro Time: 20 SEC DAP (Gy m2): Air Kerma (mGy): C3 TIME OF STUDY: 07/10/2019 7:13 AM REASON FOR EXAM: LITHOTRIPSY COMPARISON: None. FINDINGS: 4 coned-down intraoperative fluoroscopic views of the left abdomen demonstrate postoperative changes of left ureteral stent placement The soft tissues and osseous structures are suboptimally evaluated secondary to fluoroscopic technique. Fluoroscopy time: 21 seconds IMPRESSION: Intraoperative fluoroscopic views of left ureteral stent placement. Please see operative report at 1056 Reported and signed by: Abraham Reyes M.D. CC: Ry Slade MD; Audrey Alonzo PAGE 1 Signed Report Name: [facility] 1960 Age/S: 59 / F [id number] [address] [employer] Unit #: [id number] Loc: [place] [address] Phys: Ry Slade MD Acct: [id number] Dis Date: Status: [facility] PHONE #: [phone] Exam Date: 07/10/2019 1025 FAX #: Reason: LITHOTRIPSY EXAMS: CPT: [id number] XR FLUOROSCOPY 0-60 MIN 55044 Fluoro Time: 20 SEC DAP (Gy m2): Air Kerma (mGy): <Continued> Technologist: Diandra Lloyd RT(R) Trnscb Date/Time: 07/10/2019 (1056) [email or web address] Orig Print D/T: S: 07/10/2019 (7647) PAGE 2 Signed ReportGLUCOSE BEDSIDE [id number] 09:42:00 Test Item Value Reference Range Interpretation Comments GLUCOSE BEDSIDE TESTING (test code = 95 mg/dL 70-110 N GLUBED)
[2022-07-06] MEDS ORDERED: MAGNES/ALUMIN/SIMET 30ML UCUP ONE (15:13)
[2022-07-06] MEDS ORDERED: dexAMETHasone 10 MG/ML VIAL ONE (15:13)
[2022-07-06] MEDS ORDERED: LIDOCAINE VISCOUS 2% SOLN 15 ML UDC ONE (15:14)
--- NOTE | 2022-07-06 15:37 | ER ---
Nurse's Notes [facility] Name: Hugo Omer Age: 62 yrs Sex: Female : 1960 Arrival Date: 07/06/2022 Time: 12:39 Bed 20 Private MD: Filipe Souza R Diagnosis: Coronavirus infection, unspecified Presentation: 07/06 13:07 Chief complaint: Patient states: Sore throat, fever, cough x 1 week. Coronavirus jl7 screen: cough unrelated to allergies, fever, sore throat, Client presents with at least one sign or symptom that may indicate coronavirus-19. Standard/surgical mask placed on the client. Ebola Screen: No symptoms or risks identified at this time. Risk Assessment: Do you want to hurt yourself or someone else? Patient reports no desire to harm self or others. Onset of symptoms was June 29, 2022. 13:07 Method Of Arrival: Ambulatory jl7 13:20 Initial Sepsis Screen: Does the patient meet any 2 criteria? No. Patient's initial jl7 sepsis screen is negative. Does the patient have a suspected source of infection? No. Patient's initial sepsis screen is negative. 13:20 Acuity: TASHIA 4 jl7 Triage Assessment: 13:17 General: Appears in no apparent distress. uncomfortable, Behavior is calm, cooperative, jl7 appropriate for age. Pain: Complains of pain in sore throat Pain currently is 9 out of 10 on a pain scale. EENT: Throat is reddened. 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 - Social history:: Smoking status: Patient denies any tobacco usage or history of. Screenin:30 Abuse screen: Denies threats or abuse. Denies injuries from another. Has been jg9 threatened or abused. Nutritional screening: No deficits noted. Tuberculosis screening: No symptoms or risk factors identified. Fall Risk None identified. Assessment: 15:15 Respiratory: Airway is patent Respiratory effort is even, unlabored, Breath sounds are jg9 clear bilaterally. Vital Signs: 13:17 BP 120 / 79; Pulse 82; Resp 17; Temp 98.3; Pulse Ox 100% ; Weight 70.31 kg; Height 5 7 ft. 4 in. (162.56 cm); Pain 9/10; 15:10 BP 122 / 82; Pulse 78; Resp 16 S; Pulse Ox 99% on R/A; jg9 13:17 Body Mass Index 26.61 (70.31 kg, 162.56 cm) [facility] ED Course: 12:39 Patient arrived in ED. mr 12:39 Filipe Souza MD is Private Physician. mr 12:41 [facility] 12:41 Tha Perez MD is Attending Physician. [facility] 13:07 Arm band placed on right wrist. [facility] 13:20 Triage completed. [facility] 13:29 COVID swab sent to lab. Flu and/or RSV swab sent to lab. Strep swab sent to lab. [facility] 13:36 Veena Walker RN is Primary Nurse. jg9 15:15 Patient has correct armband on for positive identification. Bed in low position. Call jg9 light in reach. Side rails up X 1. 16:02 No provider procedures requiring assistance completed. jg9 16:02 Patient did not have IV access during this emergency room visit. jg9 Administered Medications: 15:15 Drug: GI Cocktail without - (Maalox Suspension 30 ml, Lidocaine Liquid 2 % 15 jg9 ml) Route: PO; 15:16 Drug: Decadron (dexamethasone) 10 mg Route: IM; Site: right deltoid; jg9 Medication: 16:02 VIS not applicable for this client. jg9 Outcome: 15:36 Discharge ordered by . [facility] 16:02 Discharged to home ambulatory. jg9 16:02 Condition: stable 16:02 Discharge instructions given to patient, Instructed on discharge instructions, follow up and referral plans. Demonstrated understanding of instructions, follow-up care, Prescriptions given X 1. 16:03 Patient left the ED. jg9 Signatures: Carroll Pedraza PA PA Yvonne Coronel Jahala, RN RN 7 Veena Walker, RN RN jg9
--- NOTE | 2022-07-06 15:37 | EDPHYS ---
Physician Documentation [facility] Name: Hugo Omer Age: 62 yrs Sex: Female : 1960 Arrival Date: 07/06/2022 Time: 12:39 Bed 20 Private MD: Filipe Souza R ED Physician Tha Perez HPI: 07/06 13:21 This 62 yrs old Female presents to ER via Ambulatory with complaints of Cough, Sore jmm Throat, Fever. 13:21 The patient or guardian reports cough. Onset: The symptoms/episode began/occurred jmm gradually. Modifying factors: The symptoms are alleviated by nothing, the symptoms are aggravated by nothing. Associated signs and symptoms: Pertinent positives: sore throat. The patient has not experienced similar symptoms in the past. 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 - Social history:: Smoking status: Patient denies any tobacco usage or history of. ROS: 13:21 Constitutional: Positive for body aches, chills. jmm 13:21 ENT: Positive for sore throat. 13:21 Respiratory: Positive for cough. 13:21 All other systems are negative. Exam: 13:21 Constitutional: This is a well developed, well nourished patient who is awake, alert, jmm and in no acute distress. Head/Face: atraumatic. Eyes: EOMI, no conjunctival erythema appreciated 13:21 Neck: Trachea midline, Supple Chest/axilla: Normal chest wall appearance and motion. Cardiovascular: Regular rate and rhythm. No edema appreciated Respiratory: Normal respirations, no respiratory distress appreciated Abdomen/GI: Non distended Back: Normal ROM Skin: General appearance color normal MS/ Extremity: Moves all extremities, no obvious deformities appreciated, no edema noted to the lower extremities Neuro: Awake and alert Psych: Behavior is normal, Mood is normal, Patient is cooperative and pleasant 13:21 ENT: Posterior pharynx: erythema, that is mild. Vital Signs: 13:17 BP 120 / 79; Pulse 82; Resp 17; Temp 98.3; Pulse Ox 100% ; Weight 70.31 kg; Height 5 jl7 ft. 4 in. (162.56 cm); Pain 9/10; 15:10 BP 122 / 82; Pulse 78; Resp 16 S; Pulse Ox 99% on R/A; jg9 13:17 Body Mass Index 26.61 (70.31 kg, 162.56 cm) 7 MDM: 13:32 Patient medically screened. [facility] 15:36 Data reviewed: vital signs, nurses notes. Counseling: I had a detailed discussion with luis the patient and/or guardian regarding: the historical points, exam findings, and any diagnostic results supporting the discharge/admit diagnosis, lab results, the need for outpatient follow up, to return to the emergency department if symptoms worsen or persist or if there are any questions or concerns that arise at home. 07/06 13:19 Order name: COVID-19 SARS RT PCR (Document "Date of Onset" if Symptomatic); Complete [facility] Time: 14:55 07/06 13:19 Order name: Flu; Complete Time: 14:22 7 07/06 13:19 Order name: Strep; Complete Time: 14:22 [facility] 07/06 14:15 Order name: Throat Culture EDMS Administered Medications: 15:15 Drug: GI Cocktail without - (Maalox Suspension 30 ml, Lidocaine Liquid 2 % 15 jg9 ml) Route: PO; 15:16 Drug: Decadron (dexamethasone) 10 mg Route: IM; Site: right deltoid; jg9 Disposition: 16:44 PA/OTHER SPORTS COACH OR INSTRUCTOR's history reviewed, patient interviewed, and examined. Attestation: The patient's jr11 history, exam findings, diagnostics, and a summary of any interventions or procedures was reviewed in detail with Carroll SIMMONS. Disposition Summary: 07/06/22 15:36 Discharge Ordered Location: Home jennifer Condition: Stable jennifer Diagnosis - Coronavirus infection, unspecified [facility] Followup: luis - With: Private Physician - When: 2 - 3 days - Reason: Recheck today's complaints, Continuance of care, Re-evaluation by your physician Discharge Instructions: - Discharge Summary Sheet [facility] - COVID-19 [facility] Forms: - Medication Reconciliation Form [facility] - Thank You Letter jmmanuela - Antibiotic Education jenniferm - Prescription Opioid Use [facility] Prescriptions: - PAXLOVID 300mg/100 mg convience pack - take 1 application by ORAL route 2 times per day for 5 days; 1 packet; Refills: luis 0, Product Selection Permitted Signatures: Dispatcher [employer] EDCarroll Perez PA PA jmm Leal, Jahala, RN RN jl7 Veena Walker RN RN jg9 Tha Perez MD MD jr11
[2022-07-06 16:46] VITALS: TEMP 98.3
[2022-07-06 16:50] VITALS: BP 122/82; O2SAT 99
== END 2022-07-06 16:03 | disposition home or self-care (01) ==
LOC: ER 12:37
DX: U07.1 COVID-19 (principal); I10 Essential (primary) hypertension; Z88.2 Allergy status to sulfonamides
CPT/HCPCS: 87070; 87081; 87804 ×2; 96372; 99283; U0003; J1100

== ENCOUNTER 2022-07-14 12:08 | Emergency (ER) | payer OTHER ==
--- OUTSIDE RECORDS SUMMARY | 2022-07-14 12:12 | XMS REPORT | Continuity of Care Document ---
:1960 Author Organization [facility] t Address [address] [place] [address] Dr. [address]. [address] [place] [address] Care Team Providers Name Role Phone Angelita Hickman Primary Care Physician [phone] JOCELIN ARGUETA Attending Clinician Unavailable MARIELA YAP [...] Type Date Date Clinician Sulfa Propensi Active (Sulfona ty to 2-25 mide adverse 00:00: Antibiot reaction 00 ics) to drug No Known DA Active [facility] 8[facility]15 [place] [facility] Sulfa Propensi Active Nausea 2016-11 Univers (Sulfona ty to and/or 0-20 ity of mide adverse Vomiting 00:00: [place] Antibiot reaction 00 Medica l ics) s Branch SULFA Drug Active N/V 2016-11 Univers (SULFONA Class 0-20 ity of MIDE 00:00: [place] ANTIBIOT 00 Medical ICS) Branch Social History Social Habit Start Date Stop Date Quantity Comments Source Sex Assigned At [facility] Medical Branch Exposure to Not sure [facility] SARS-CoV-2 (event) Medica l Branch Tobacco use and 2020-09-22 2020-09-22 Never used [facility] exposure 00:00:00 00:00:00 Medical Branch Smoking Status Start Date Stop Date Source Never smoker [facility] Medical Branch Medications Ordered Filled Start Stop Current Ordering Indication Dosage Frequency Signature Comments Components Source Medication Medication Date Date Medication? Clinician (SIG) Name Name TAKE 1 2021-0 No 1 TABLET BY 8-13 MOUTH EVERY 00:00: DAY 00 TAKE 1 2021-0 No TABLET BY 8-11 MOUTH TWICE 00:00: DAILY 00 TAKE 1 2021-0 No 300 TABLET BY 8-11 MOUTH EVERY 00:00: DAY 00 &lt 2022-0 No 200 8-11 00:00: 00 Dose 2-0 No Unknown 8-11 00:00: 00 &lt 2022-0 No 10 8-11 00:00: 00 TAKE 1 2021-0 No 125 CAPSULE BY 8-11 MOUTH EVERY 00:00: MORNING 00 TAKE 1 2021-0 No 5 TABLET BY 8-11 MOUTH EVERY 00:00: DAY 00 trazodone 2022-0 No 1mg 50 mg 4-21 tablet 00:00: 00 irbesartan 2022-0 No 1mg 300 mg 4-14 tablet 00:00: 00 amlodipine 2-0 No 1mg 5 mg tablet 4-14 00:00: 00 Dose 2022-0 No Unknown 4-14 00:00: 00 Dose 2022-0 No Unknown 3-29 00:00: 00 Dose 2022-0 No Unknown 3-29 00:00: 00 Dose 2-0 No Unknown 3-29 00:00: 00 Dose 2022-0 No Unknown 3-29 00:00: 00 Dose 2022-0 No Unknown 3-29 00:00: 00 Dose 2022-0 No Unknown 3-29 00:00: 00 trazodone 2-0 No 1mg 50 mg 2-24 tablet 00:00: 00 Dose 2020-1 No Unknown 2-07 00:00: 00 trazodone 2020-11 No 1mg 50 mg 0-07 tablet 00:00: 00 trazodone 0 No 1mg 50 mg 8-31 tablet 00:00: 00 Victoza 0 No 1(18 3-Romulo 0.6 7-27 mg/3 mg/0.1 mL 00:00: mL) (18 mg/3 00 mL) subcutaneou s pen injector buspirone 0 No 1mg 10 mg 7-27 tablet 00:00: 00 hydrocortis 0 No 1mg one 10 mg 7-27 tablet 00:00: 00 Dose 0 No Unknown 7-27 00:00: 00 trazodone 0 No 1mg 50 mg 7-27 tablet 00:00: 00 Klor-Con/EF No 1mEq 25 mEq 7-27 effervescen 00:00: t tablet 00 Dose No Unknown 3-15 00:00: 00 trazodone No 1mg 50 mg 3-08 tablet 00:00: 00 trazodone 2019-11 No 1mg 50 mg 2-02 tablet 00:00: 00 diclofenac 2019-11 Yes 75mg Take 1 Unive rs 75 mg EC 0-30 tablet by ity of tablet 00:00: mouth 2 [place] (two) Medical times Branch daily with meals. diclofenac 2019-11 Yes 75mg Take 1 Unive rs 75 mg EC 0-30 tablet by ity of tablet 00:00: mouth 2 [place] (two) Medical times Branch daily with meals. trazodone 2019-0 No 1mg 50 mg 8-24 tablet 00:00: 00 trazodone 2019-0 No 1mg 50 mg 5-15 tablet 00:00: 00 trazodone 2019-0 No 1mg 50 mg 3-11 tablet 00:00: 00 amoxicillin 2019-0 No 1mg 875 2-07 mg-potassiu 00:00: m 00 clavulanate 125 mg tablet Dose 0 No Unknown 2-05 00:00: 00 trazodone 2019-0 No 1mg 50 mg 2-04 tablet 00:00: 00 diclofenac 2017-1 Yes 75mg Take 1 Unive rs 75 [...] by ity of tablet 00:00: mouth 2 [place] (two) Medical times Branch daily with meals. Diclofenac 2016-11 Yes Apply Univer s Sodium 0-20 2mg-4mg to ity of (VOLTAREN) 00:00: affected [place] as 1 % gel 00 area 4 Medical times Branch daily diclofenac 2016-11 Yes 75mg Take 1 Unive rs 75 mg EC 0-20 tablet by ity of tablet 00:00: mouth 2 [place] (two) Medical times Branch daily with meals. Diclofenac 2016-11 Yes Apply Univer s Sodium 0-20 2mg-4mg to ity of (VOLTAREN) 00:00: affected [place] as 1 % gel 00 area 4 Medical times Branch daily diclofenac 2016-11 Yes 75mg Take 1 Unive rs 75 mg EC 0-20 tablet by ity of tablet 00:00: mouth 2 [place] (two) Medical times Branch daily with meals. Diclofenac 2016-11 Yes Apply Univer s Sodium 0-20 2mg-4mg to ity of (VOLTAREN) 00:00: affected [place] as 1 % gel 00 area 4 Medical times Branch daily valsartan 2016-11 Yes Univers 40 mg 0-16 ity of tablet 00:00: Medical Branch valsartan 2016-11 Yes Univers 40 mg 0-16 ity of tablet 00:00: Medical Branch valsartan 2016-11 Yes Univers 40 mg 0-16 ity of tablet 00:00: Medical Branch valsartan 2016-11 Yes Univers 40 mg 0-16 ity of tablet 00:00: Medical Branch SYNTHROID 2016-11 Yes Univers 50 mcg 0-14 ity of tablet 00:00: Medical Branch SYNTHROID 2016-11 Yes Univers 50 mcg 0-14 ity of tablet 00:00: Medical Branch SYNTHROID 2016-11 Yes Univers 50 mcg 0-14 ity of tablet 00:00: Medical Branch SYNTHROID 2016-11 Yes Univers 50 mcg 0-14 ity of tablet 00:00: Medical Branch metformin 2016- Yes Univers ER 500 mg 0-07 ity of 24 hr 00:00: [place] tablet Medical Branch metformin 2016-11 Yes Univers ER 500 mg 0-07 ity of 24 hr 00:00: [place] tablet Medical Branch metformin 2016- Yes Univers ER 500 mg 0-07 ity of 24 hr 00:00: [place] tablet Medical Branch metformin 2016- Yes Univers ER 500 mg 0-07 ity of 24 hr 00:00: [place] tablet [facility] Branch traZODONE 20170 Yes Univers 50 mg 9-11 ity of tablet 00:00: [place] [facility] traZODONE 2017-0 Yes Univers 50 mg 9-11 ity of tablet 00:00: [place] [facility] traZODONE 2017-0 Yes Univers 50 mg 9-11 ity of tablet 00:00: [place] [facility] traZODONE 2017-0 Yes Univers 50 mg 9-11 ity of tablet 00:00: [place] [facility] fludrocorti 2017-0 Yes Univer s sone 0.1 mg 9-05 ity of tablet 00:00: [place] [facility] fludrocorti 2017-0 Yes Univer s sone 0.1 mg 9-05 ity of tablet 00:00: [place] [facility] fludrocorti 2017-0 Yes Univer s sone 0.1 mg 9-05 ity of tablet 00:00: [place] [facility] fludrocorti 2017-0 Yes Univer s sone 0.1 mg 9-05 ity of tablet 00:00: [place] [facility] hydrocortis 2017-0 Yes Univer s one 10 mg 8-28 ity of tablet 00:00: [place] [facility] hydrocortis 2017-0 Yes Univer s one 10 mg 8-28 ity of tablet 00:00: [place] [facility] hydrocortis 2017-0 Yes Univer s one 10 mg 8-28 ity of tablet 00:00: [place] [facility] hydrocortis 2017-0 Yes Univer s one 10 mg 8-28 ity of tablet 00:00: [place] [facility] Vital Signs Vital Name Observation Time Observation Value Comments Source Systolic blood 2020-09-22 18:19:00 142 mm[Hg] Univer sity of pressure [facility] Diastolic blood 2020-09-22 18:19:00 82 mm[Hg] Unive rsity of pressure [facility] Heart rate 2020-09-22 18:19:00 78 /min Universi ty [facility] Body weight 2020-09-22 18:18:00 73.483 kg Universi ty [facility] BMI 2020-09-22 18:18:00 27.81 kg/m2 Universi ty [facility] Systolic blood 2020-09-22 18:19:00 142 mm[Hg] Univer sity of pressure [facility] Diastolic blood 2020-09-22 18:19:00 82 mm[Hg] Unive rsity of pressure [facility] Heart rate 2020-09-22 18:19:00 78 /min Universi ty [facility] Body weight 2020-09-22 18:18:00 73.483 kg Universi ty [facility] BMI 2020-09-22 18:18:00 27.81 kg/m2 [facility] BP Systolic 2021-08-18 15:07:00 101 mm[Hg] BP Diastolic 2021-08-18 15:07:00 66 mm[Hg] Weight Measured 2021-08-18 15:07:00 161.40 pounds Height Measured 2021-08-18 15:07:00 66.00 inches Body Temperature 2021-08-18 15:07:00 98.30 degrees Heart Rate 2021-08-18 15:07:00 83.00 /min Respiratory Rate 2021-08-18 15:07:00 BP Systolic 2021-06-20 14:06:00 121 mm[Hg] BP Diastolic 2021-06-20 14:06:00 74 mm[Hg] Weight Measured 2021-06-20 14:06:00 160.60 pounds Height Measured 2021-06-20 14:06:00 66.00 inches Body Temperature 2021-06-20 14:06:00 98.10 degrees Heart Rate 2021-06-20 14:06:00 88.00 /min Respiratory Rate 2021-06-20 14:06:00 BP Systolic 2021-03-03 16:46:00 139 mm[Hg] BP Diastolic 2021-03-03 16:46:00 88 mm[Hg] Weight Measured 2021-03-03 16:46:00 164.20 pounds Height Measured 2021-03-03 16:46:00 66.00 inches Body Temperature 2021-03-03 16:46:00 97.80 degrees Heart Rate 2021-03-03 16:46:00 98.00 /min Respiratory Rate 2021-03-03 16:46:00 16.00 /min BP Systolic 2020-04-08 13:20:00 BP Diastolic 2020-04-08 13:20:00 Weight Measured 2020-04-08 13:20:00 160.00 pounds Height Measured 2020-04-08 13:20:00 66.00 inches Body Temperature 2020-04-08 13:20:00 Heart Rate 2020-04-08 13:20:00 Respiratory Rate 2020-04-08 13:20:00 BP Systolic 2020-01-01 13:25:00 118 mm[Hg] BP Diastolic 2020-01-01 13:25:00 76 mm[Hg] Weight Measured 2020-01-01 13:25:00 172.00 pounds Height Measured 2020-01-01 13:25:00 66.00 inches Body Temperature 2020-01-01 13:25:00 98.10 degrees Heart Rate 2020-01-01 13:25:00 81.00 /min Respiratory Rate 2020-01-01 13:25:00 16.00 /min Procedures Procedure Date / Time Performed Performing Clinician Sourc e US ABDOMEN COMPLETE 2020-06-20 15:14:45 Karen Gonzalez [facility] Plan of Care Planned Activity Planned Date Details Comments Source Goal Plan of Care Note [code = 01135-3] Goal Plan of Care Note [code = 14406-3] Goal Plan of Care Note [code = 09424-9] Goal Plan of Care Note [code = 85151-0] Goal Plan of Care Note [code = 82747-1] Goal Plan of Care Note [code = 48682-2] Goal Plan of Care Note [code = 44395-2] Goal Plan of Care Note [code = 79082-4] Goal Plan of Care Note [code = 42261-1] Goal Plan of Care Note [code = 34152-5] Goal Plan of Care Note [code = 35191-9] Goal Plan of Care Note [code = 78747-0] Goal Plan of Care Note [code = 77863-1] Goal Plan of Care Note [code = 80304-7] Goal Plan of Care Note [code = 73200-3] Goal Plan of Care Note [code = 28557-1] Goal Plan of Care Note [code = 71618-8] Goal Plan of Care Note [code = 44082-6] Goal Plan of Care Note [code = 85707-5] Encounters Start End Encounter Admission Attending Care Care Encounter Source Date/Time Date/Time Type Type Clinicians Facility Department ID 2022-07-05 2022-07-05 Outpatient [id number] 00:00:00 00:00:00 Visit [id number] 2022-04-24 2022-04-24 [facility] [id number] [place] 00:00:00 00:00:00 JOCELIN 769 Method i 2022-04-20 2022-04-20 [facility] [id number] [place] 00:00:00 00:00:00 JOCELIN 118 Method i 2022-04-12 2022-04-12 [facility] [id number] [place] 00:00:00 00:00:00 JOCELIN 122 Method i 2022-03-14 2022-03-14 Outpatient [facility] [id number] [place] 00:00:00 00:00:00 457 Method i 2022-02-15 2022-02-15 [facility] [id number] [place] 00:00:00 00:00:00 MARIELA 591 Method i 2022-02-15 2022-02-15 [facility] [id number] [place] 00:00:00 00:00:00 MARIELA 115 Method i 2022-01-30 2022-01-30 [id number] [place] 00:00:00 00:00:00 MARIELA 212 Method i 2022-01-26 2022-01-26 [facility] [id number] [place] 00:00:00 00:00:00 MARIELA 646 Method i 2022-01-17 2022-01-17 Outpatient [facility] [id number] [place] 00:00:00 00:00:00 354 Method i 2022-01-17 2022-01-17 Outpatient FRACISCO, [facility] [id number] [place] 00:00:00 00:00:00 MARIELA 498 Method i 2021-12-28 2021-12-28 Outpatient FRACISCO, [facility] [id number] [place] 00:00:00 00:00:00 MARIELA 991 Method i 2021-12-28 2021-12-28 Outpatient FRACISCO [facility] [id number] [place] 00:00:00 00:00:00 MARIELA 794 Method i 2020-09-22 2020-09-22 [facility] [id number] [facility] 13:03:49 23:59:00 Encounter Selwyn Rodriguez [facility] [id number] ity of Surgical 4.2.7.2.686 [place] as Specialti [id number] Nh dical es 809 [facility] 2020-09-22 2020-09-22 [facility] [id number] Univers 16:15:00 16:15:00 SELWYN [id number] [facility] 2020-09-22 2020-09-22 [facility] [id number] Univers [facility]:15[facility] 2020-09-22 Office [facility] [id number] Univers 13:02:51 13:39:34 Visit Selwyn [facility] [id number] it y of Surgical 4.2.7.2.686 [place] as Specialti [id number] Me dical es 198 [facility] 2020-09-22 2020-09-22 Office [facility] [id number] 13:02:51 13:39:34 Visit Selwyn Rodriguez [facility] [id number] Surgical 4.2.7.2.686 Specialti [id number] 198 Bertha 2020-06-20 2020-06-20 [facility] [id number] Univers 09:19:00 23:59:00 Encounter Karen reynaga Luz Bertha [id number] itrobb jimenez [place] 4.2.7.2.686 [facility] [id number] [facility] 806 Branch 2020-06-20 2020-06-20 Outpatient R [facility] [id number] Univers 00:00:00 00:00:00 KAREN Reynaga [id number] ity o f [facility] 2020-06-20 2020-06-20 Outpatient R [facility] [id number] Univers 00:00:00 00:00:00 Sixto KAREN garciay o f [facility] Results Test Description Test Time Test Comments Results Result Comments Source SARS-CoV-2 (COVID-19) RNA [Presence] in Respiratory sp ecimen by 2022-01-26 22:12:00 LEYDI with probe detection Test Item Value Reference Range Interpretation Comme nts SARS coronavirus RNA [Presence] in Isolate by LEYDI with probe Not de tected detection (test code = 99182-2) Whether patient is employed in a healthcare setting (test code = Un known 50127-0) Whether the patient has symptoms related to condition of interest U nknown (test code = 62107-9) Whether the patient was hospitalized for condition of interest Unkn own (test code = 40659-8) Whether the patient was admitted to intensive care unit (ICU) for U nknown condition of interest (test code = 10825-6) Whether patient resides in a congregate care setting (test code = U nknown 91646-4) status (test code = 99312-5) Unknown Date and time of symptom onset (test code = 67029-2) Unknown SARS-CoV-2 (COVID-19) RNA [Presence] in Respiratory specimen by LEYDI with probe [id number] 22:12:00 Test Item Value Reference Range Interpretation Comments SARS-CoV-2 (COVID-19) RNA Not detected [Presence] in Respiratory specimen by LEYDI with probe detection (test code = 20080-9) Whether patient is employed in a Unknown healthcare setting (test code = 25591-7) Whether the patient has symptoms Unknown related to condition of interest (test code = 93644-4) Whether the patient was Unknown hospitalized for condition of interest (test code = 56224-0) Whether the patient was admitted Unknown to intensive care unit (ICU) for condition of interest (test code = 03169-4) Whether patient resides in a Unknown congregate care setting (test code = 64281-3) status (test code = Unknown 52154-2) Date and time of symptom onset Unknown (test code = 37364-1) US ABDOMEN [id number] 16:16:31ULTRASOUND ABDOMEN: HISTORY: Recurrent epigastric abdominal pain,moderatley [...] normal in caliber. CONCLUSIONS:1. Cholelithiasis2. 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 ST COMMENT 3 (test Comment () Physician questions code = CMTST3) regarding Khoa culi Analysis contac [facility] at: . - XR FLUOROSCOPY 0-60 [id number] 10:56:00 Name: JOSE OMER [facility]ly [facility] : 1960 Age/S: 59 / F [id number] [place] Unit #: [id number] Loc: [place] [address] Phys: Ry Slade MD Acct: [id number] Dis Date: Status: [facility] PHONE #: [phone] Exam Date: 07/10/2019 1027 FAX #: Reason: LITHOTRIPSY EXAMS: CPT: [id number] XR FLUOROSCOPY 0-60 MIN 27301 Fluoro Time: 20 SEC DAP (Gy m2): [...] PAGE 1 Signed Report Name: JOSE OMER Renetta : 1960 Age/S: 59 / F [id number] [place] Unit #: [id number] Loc: [place] [address] Phys: Ry Slade MD Acct: [id number] DisDate: Status: REG [facility] PHONE #: [phone] Exam Date: 07/10/2019 1020 FAX #: Reason: LITHOTRIPSY EXAMS: CPT: [id number] XR FLUOROSCOPY 0-60 MIN 23149 Fluoro Time: 20 SEC DAP (Gy m2): Air Kerma (mGy):(Continued) Technologist: Diandra Lloyd RT(R) Trnscb Date/Time: 07/10/2019 (4817) KiraSI1 [facility] D/T: S: 07/10/2019 (3874) PAGE 2 Signed ReportGLUCOSE BEDSIDE [id number] 09:42:00 Test Item Value Reference Range Interpretation Comments GLUCOSE BEDSIDE TESTING (test code = 95 mg/dL 70-110 N GLUBED)
[2022-07-14] MEDS ORDERED: ONDANSETRON 4 MG/2 ML VIAL ONE (12:57)
[2022-07-14] MEDS ORDERED: NA CHLORIDE 0.9% 500 ML ONE ×2 (12:57→13:50)
[2022-07-14 13:04] LABS: Absolute Lymphocytes (CBC) 3.3 K/uL (0.7-4.9); Hematocrit 39.8 % (36.0-45.0); Lymphocytes % 19.3 % (15.3-44.8); MCV 83.6 fL (80-100); MPV 7.2 fL (7.6-11.3); RBC Red Blood Cell Count 4.75 M/uL (3.86-4.86)
[2022-07-14 13:15] LABS: Protime INR 1.04
[2022-07-14 13:25] LABS: Albumin 3.1 g/dL (3.4-5.0); Bilirubin Direct 0.2 mg/dL (0-0.2); Bilirubin Total 0.5 mg/dL (0.2-1.0); Potassium 3.4 mmol/L (3.5-5.1); Protein, Total 6.4 g/dL (6.4-8.2); Troponin High Sensitivity 3.2 pg/mL (<58.9)
--- NOTE | 2022-07-14 13:43 | RAD REPORT ---
EXAM DESCRIPTION: RAD - Chest Single View - 07/14/2022 1:29 pm CLINICAL HISTORY: weakness, recent COVID Diagnosis COMPARISON: Two view chest 10/07/2020 TECHNIQUE: AP portable chest image was obtained 07/14/2022 1:29 pm . FINDINGS: Lungs are clear. Heart and vasculature are normal. No measurable pleural effusion and no p neumothorax. No acute bony abnormality seen. No acute aortic findings suspected. IMPRESSION: No acute cardiopulmonary process. No significant change from comparison study.
[2022-07-14] MEDS ORDERED: HYDROCORTISONE SUC 100 MG INJ ONE (13:50)
[2022-07-14] MEDS ORDERED: POTASSIUM 25 MEQ EFFERV TAB ONE (14:34)
--- NOTE | 2022-07-14 15:47 | ER ---
Nurse's Notes [facility] Name: Hugo Omer Age: 62 yrs Sex: Female : 1960 Arrival Date: 07/14/2022 Time: 12:11 Bed 7 Private MD: Diagnosis: Nausea;Volume depletion, unspecified;Weakness Presentation: 07/14 12:16 Chief complaint: Patient states: Pt reports she was diagnosed with Covid 1 week ago and kb3 still feels bad, nauseous. Pt reports her has already recovered and she feels like she should be better by now. States her edge grinder wants her to come in and get blood work and IVF. Coronavirus screen: Vaccine status: Client denies travel out of the [place] in the last 14 days. chills, diarrhea, fatigue, headache, muscle pain, nausea, runny nose, shaking with chills, sore throat, Client presents with at least one sign or symptom that may indicate coronavirus-19. Standard/surgical mask placed on the client. Ebola Screen: Patient negative for fever greater than or equal to 101.5 degrees Fahrenheit, and additional compatible Ebola Virus Disease symptoms Patient denies exposure to infectious person. Patient denies travel to an Ebola-affected area in the 21 days before illness onset. No symptoms or risks identified at this time. No acute neurological deficit is noted. Pre-hospital glucose is not applicable to this patient. Initial Sepsis Screen: Does the patient meet any 2 criteria? No. Patient's initial sepsis screen is negative. Does the patient have a suspected source of infection? No. Patient's initial sepsis screen is negative. Initial Sepsis Screen: Does the patient meet any 2 criteria? No. Patient's initial sepsis screen is negative. Does the patient have a suspected source of infection? Yes: Other: Covid. Risk Assessment: Do you want to hurt yourself or someone else? Patient reports no desire to harm self or others. 12:16 Method Of Arrival: Ambulatory kb3 12:16 Onset of symptoms was June 25, 2022. kb3 12:16 Acuity: TASHIA 3 kb3 Triage Assessment: 12:20 The onset of the patients symptoms was more than six hours ago. General: Appears in no kb3 apparent distress. comfortable, Behavior is calm, cooperative. Pain: Complains of pain in head Pain does not radiate. Pain currently is 8 out of 10 on a pain scale. Quality of pain is described as aching, pressure, Pain began 3 weeks. Neuro: No deficits noted. Reports headache. Historical: - Allergies: 12:20 Sulfa (Sulfonamide Antibiotics) (Upset stomach); kb3 - Home Meds: 12:20 estropipate 0.75 mg Oral tab 1 tab once daily [Active]; Florinef Acetate Oral daily kb3 [Active]; hydrocortisone 10 mg Oral tab 2 tabs 2 times per day [Active]; Magnesium Oxide Oral [Active]; metformin 500 mg Oral Tb24 2 tabs once daily [Active]; Synthroid 50 mcg Oral tab 1 tab once daily [Active]; trazodone 50 mg Oral tab 1 tab nightly [Active]; valsartan 40 mg Oral tab [Active]; Victoza 2-Romulo 0.6 mg/0.1 mL (18 mg/3 mL) subcutaneous pnij 1.2 mL once daily [Active]; - PMHx: 12:20 Degenerative disc disease of cervical spine; degenerative disc dse of cervical spine; kb3 Diabetes - IDDM; Diabetes - NIDDM; Hypertension; Hypothyroidism; 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 - Social history:: Smoking status: Patient denies any tobacco usage or history of. Screenin:47 Abuse screen: Denies threats or abuse. Denies injuries from another. Nutritional hb screening: No deficits noted. Tuberculosis screening: No symptoms or risk factors identified. Fall Risk None identified. Assessment: 13:00 General: Appears in no apparent distress. Behavior is calm, cooperative. Pain: Denies hb pain. Neuro: Level of Consciousness is awake, alert, obeys commands, Oriented to person, place, time, situation. Cardiovascular: Patient's skin is warm and dry. Respiratory: Respiratory effort is even, unlabored, Respiratory pattern is regular, symmetrical. GI: Reports nausea. : No signs and/or symptoms were reported regarding the genitourinary system. EENT: No signs and/or symptoms were reported regarding the EENT system. Derm: Skin is pink, warm \T\ dry. Musculoskeletal: No signs and/or symptoms reported regarding the musculoskeletal system. 14:00 Reassessment: Patient appears in no apparent distress at this time. Patient and/or hb family updated on plan of care and expected duration. Pain level reassessed. Patient is alert, oriented x 3, equal unlabored respirations, skin warm/dry/pink. 15:00 Reassessment: Patient appears in no apparent distress at this time. Patient and/or hb family updated on plan of care and expected duration. Pain level reassessed. Patient is alert, oriented x 3, equal unlabored respirations, skin warm/dry/pink. 16:00 Reassessment: Patient appears in no apparent distress at this time. Patient and/or hb family updated on plan of care and expected duration. Pain level reassessed. Patient is alert, oriented x 3, equal unlabored respirations, skin warm/dry/pink. Vital Signs: 12:16 BP 132 / 89; Pulse 100; Resp 16; Temp 98.1; Pulse Ox 100% ; Weight 69.85 kg; Height 5 kb3 ft. 4 in. (162.56 cm); Pain 8/10; 12:55 BP 127 / 85 Supine; Pulse 90; hb 13:02 BP 127 / 84 Sitting; Pulse 83; hb 13:07 BP 129 / 78; Pulse 86; hb 14:00 BP 128 / 75; Pulse 75; Resp 16; Pulse Ox 99% ; hb 15:30 BP 126 / 76; Pulse 74; Resp 15; Pulse Ox 99% ; hb 12:16 Body Mass Index 26.43 (69.85 kg, 162.56 cm) kb3 ED Course: 12:11 Patient arrived in ED. as 12:19 Triage completed. kb3 12:20 Arm band placed on right wrist. kb3 12:28 Demian Chance PA is PHCP. cp 12:28 Sepideh Jerome MD is Attending Physician. cp 12:51 Inserted saline lock: 20 gauge in left antecubital area, using aseptic technique. Blood hb collected. 13:29 Note: PT REFUSED CT HEAD WITHOUT, NURSE NOTIFIED. mw3 13:31 XRAY Chest (1 view) In Process Unspecified. EDMS 13:37 Bala Badillo, DHRUV is Primary Nurse. jl7 14:47 Patient has correct armband on for positive identification. hb 16:00 No provider procedures requiring assistance completed. IV discontinued, intact, hb bleeding controlled, No redness/swelling at site. Administered Medications: 13:00 Drug: Zofran (Ondansetron) 4 mg Route: IVP; Site: left antecubital; jl7 13:00 Drug: NS 0.9% 500 ml Route: IV; Rate: bolus; Site: left antecubital; jl7 14:03 Drug: HydroCORTISONE 100 mg Route: IVP; Site: left antecubital; jl7 14:03 Drug: NS 0.9% 500 ml Route: IV; Rate: 125 ml/hr; Site: left antecubital; jl7 14:31 Drug: Potassium Effervescent Tablet 50 mEq Route: PO; jl7 Medication: 16:00 VIS not applicable for this client. hb Outcome: 15:46 Discharge ordered by MD. cp 16:00 Discharged to home ambulatory. hb 16:00 Condition: stable 16:00 Discharge instructions given to patient, Instructed on discharge instructions, follow up and referral plans. medication usage, Demonstrated understanding of instructions, follow-up care, medications, Prescriptions given X 1. 17:22 Patient left the ED. hb Signatures: Dispatcher [employer] EDMS Sivan Figueredo Corey, PA PA cp Baxter, Heather, RN RN Bala Badillo RN RN jl7 Kristine Garzon mw3 Ann Marie Rouse, RN RN kb3
--- NOTE | 2022-07-14 15:47 | EDPHYS ---
Physician Documentation [facility] Name: Hugo Omer Age: 62 yrs Sex: Female : 1960 Arrival Date: 07/14/2022 Time: 12:11 Bed 7 Private MD: ED Physician Sepideh Jerome HPI: 07/14 12:45 This 62 yrs old Female presents to ER via Ambulatory with complaints of dehydration, cp Weakness, Dizziness. 12:45 The patient presents to the emergency department with nausea, that is moderate, cp vomiting, that is intermittent. Possible causes: diagnosed with COVID-19 1 week ago. Associated signs and symptoms: Pertinent positives: anorexia, dizziness, Pertinent negatives: abdominal pain, constipation, diarrhea, fever, GI bleeding, active vomiting. Severity of symptoms: in the emergency department the symptoms are unchanged. Historical: - Allergies: 12:20 Sulfa (Sulfonamide Antibiotics) (Upset stomach); kb3 - Home Meds: 12:20 estropipate 0.75 mg Oral tab 1 tab once daily [Active]; Florinef Acetate Oral daily kb3 [Active]; hydrocortisone 10 mg Oral tab 2 tabs 2 times per day [Active]; Magnesium Oxide Oral [Active]; metformin 500 mg Oral Tb24 2 tabs once daily [Active]; Synthroid 50 mcg Oral tab 1 tab once daily [Active]; trazodone 50 mg Oral tab 1 tab nightly [Active]; valsartan 40 mg Oral tab [Active]; Victoza 2-Romulo 0.6 mg/0.1 mL (18 mg/3 mL) subcutaneous pnij 1.2 mL once daily [Active]; - PMHx: 12:20 Degenerative disc disease of cervical spine; degenerative disc dse of cervical spine; kb3 Diabetes - IDDM; Diabetes - NIDDM; Hypertension; Hypothyroidism; 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 - Social history:: Smoking status: Patient denies any tobacco usage or history of. ROS: 12:50 Constitutional: Negative for body aches, chills, fever. cp 12:50 Eyes: Negative for injury, pain, redness, and discharge. cp 12:50 ENT: Negative for drainage from ear(s), ear pain, sore throat, difficulty swallowing, difficulty handling secretions. 12:50 Cardiovascular: Negative for chest pain, palpitations. 12:50 Respiratory: Positive for cough, Negative for shortness of breath, wheezing. 12:50 Abdomen/GI: Positive for nausea and vomiting, anorexia, Negative for abdominal pain, diarrhea, constipation, black/tarry stool, rectal bleeding. 12:50 Neuro: Positive for dizziness, weakness, Negative for altered mental status. 12:50 All other systems are negative. Exam: 12:55 Constitutional: The patient appears in no acute distress, alert, awake, cp non-diaphoretic, non-toxic, well developed, well nourished. 12:55 Head/Face: Normocephalic, atraumatic. cp 12:55 Eyes: Periorbital structures: appear normal, Conjunctiva: normal, no exudate, no injection, Sclera: no appreciated abnormality, Lids and lashes: appear normal, bilaterally. 12:55 ENT: External ear(s): are unremarkable, Nose: is normal, Mouth: Lips: dry, Oral mucosa: pink and intact, moist, Posterior pharynx: Airway: no evidence of obstruction, patent. 12:55 Chest/axilla: Inspection: normal. 12:55 Cardiovascular: Rate: tachycardic, Rhythm: regular, Edema: is not appreciated, JVD: is not appreciated. 12:55 Respiratory: the patient does not display signs of respiratory distress, Respirations: normal, no use of accessory muscles, no retractions, labored breathing, is not present, Breath sounds: are clear throughout, no decreased breath sounds, no stridor, no wheezing. 12:55 Abdomen/GI: Inspection: abdomen appears normal, Bowel sounds: active, all quadrants, Palpation: soft, in all quadrants, mild abdominal tenderness, in the epigastric area, rebound tenderness, is not appreciated, involuntary guarding, is not appreciated. 12:55 Back: pain, is absent, ROM is normal. 12:55 Neuro: Orientation: to person, place \T\ time. Mentation: is normal, Motor: moves all fours, strength is normal, Sensation: is normal. Vital Signs: 12:16 BP 132 / 89; Pulse 100; Resp 16; Temp 98.1; Pulse Ox 100% ; Weight 69.85 kg; Height 5 kb3 ft. 4 in. (162.56 cm); Pain 8/10; 12:55 BP 127 / 85 Supine; Pulse 90; hb 13:02 BP 127 / 84 Sitting; Pulse 83; hb 13:07 BP 129 / 78; Pulse 86; hb 14:00 BP 128 / 75; Pulse 75; Resp 16; Pulse Ox 99% ; hb 15:30 BP 126 / 76; Pulse 74; Resp 15; Pulse Ox 99% ; hb 12:16 Body Mass Index 26.43 (69.85 kg, 162.56 cm) kb3 MDM: 12:31 Patient medically screened. cp 15:45 Data reviewed: vital signs, nurses notes, lab test result(s), EKG, radiologic studies, cp plain films. 15:45 Differential diagnosis: gastritis, cholecystitis, pancreatitis, viral gastroenteritis, cp gastroenteritis. Test interpretation: by ED physician or midlevel provider: ECG, plain radiologic studies. Response to treatment: the patient's symptoms have markedly improved after treatment, and as a result, I will discharge patient. 07/14 12:39 Order name: Basic Metabolic Panel; Complete Time: 13:47 cp 07/14 13:47 Interpretation: Normal except: K 3.4; GLUC 143; GFR 65; CA 8.4. cp 07/14 12:39 Order name: CBC with Diff; Complete Time: 13:47 cp 07/14 13:47 Interpretation: Normal except: WBC 17.00; NEUT A 12.3; MPV 7.2. cp 07/14 12:39 Order name: LFT's; Complete Time: 13:47 cp 07/14 13:49 Interpretation: Normal except: AST 14; ALK 38; ALB 3.1; A/G 0.9. cp 07/14 12:39 Order name: Magnesium; Complete Time: 13:47 cp 07/14 12:39 Order name: NT PRO-BNP; Complete Time: 13:47 cp 07/14 12:39 Order name: PT-INR; Complete Time: 13:47 cp 07/14 12:39 Order name: Troponin HS; Complete Time: 13:47 cp 07/14 12:39 Order name: XRAY Chest (1 view); Complete Time: 13:47 cp 07/14 12:47 Order name: Cortisol; Complete Time: 14:10 cp 07/14 12:39 Order name: Orthostatics; Complete Time: 13:32 cp 07/14 12:39 Order name: EKG; Complete Time: 12:40 cp 07/14 12:39 Order name: Cardiac monitoring; Complete Time: 13:31 cp 07/14 12:39 Order name: EKG - Nurse/Tech; Complete Time: 13:31 cp 07/14 12:39 Order name: IV Saline Lock; Complete Time: 13:31 cp 07/14 12:39 Order name: Labs collected and sent; Complete Time: 13:32 cp 07/14 12:39 Order name: O2 Per Protocol; Complete Time: 13:32 cp 07/14 12:39 Order name: O2 Sat Monitoring; Complete Time: 13:32 cp Administered Medications: 13:00 Drug: Zofran (Ondansetron) 4 mg Route: IVP; Site: left antecubital; jl7 13:00 Drug: NS 0.9% 500 ml Route: IV; Rate: bolus; Site: left antecubital; jl7 14:03 Drug: HydroCORTISONE 100 mg Route: IVP; Site: left antecubital; jl7 14:03 Drug: NS 0.9% 500 ml Route: IV; Rate: 125 ml/hr; Site: left antecubital; jl7 14:31 Drug: Potassium Effervescent Tablet 50 mEq Route: PO; jl7 Disposition Summary: 07/14/22 15:46 Discharge Ordered Location: Home cp Problem: new cp Symptoms: have improved cp Condition: Stable cp Diagnosis - Nausea cp - Volume depletion, unspecified cp - Weakness cp Followup: cp - With: Private Physician - When: 2 - 3 days - Reason: Recheck today's complaints Discharge Instructions: - Discharge Summary Sheet cp - Dehydration, Adult cp - Nausea, Adult cp - Weakness cp Forms: - Medication Reconciliation Form cp - Thank You Letter cp - Antibiotic Education cp - Prescription Opioid Use cp Prescriptions: - Zofran 4 mg Oral Tablet - take 1 tablet by ORAL route every 12 hours As needed; 20 tablet; Refills: 0, cp Product Selection Permitted Addendum: 07/15/2022 19:05 STAFF ATTESTATION STATEMENT: I was immediately available onsite in the emergency s d2 department for consultation in the care of this patient. I did not see or examine this patient. Sepideh Jerome MD. Signatures: Dispatcher [employer] EDMS Demian Chance PA PA cp Bala Badillo, RN RN jl7 Sepideh Jerome MD MD sd2 Ann Marie Rouse RN RN kb3 Corrections: (The following items were deleted from the chart) 07/14 13:30 12:40 Head Brain Wo [id number] ordered. EDTX EDTX 07/15 17:03 07/14 12:40 This 62 yrs old Female presents to ER via Ambulatory with complaints of cp dehydration, Weakness, Dizziness. cp
[2022-07-14 18:37] VITALS: TEMP 98.1
[2022-07-14 18:51] VITALS: O2SAT 99
[2022-07-14 18:54] VITALS: BP 126/76
--- NOTE | 2022-07-16 08:13 | EKG ---
Test Date: 2022-07-14 Test Time: 12:48:54 Manager Electrical: HB MEASUREMENT RESULTS: Intervals: Rate: 83 CT: 132 QRSD: 70 QT: 322 QTc: 378 [place]: P: 71 CT: 132 QRS: 74 T: 44 INTERPRETIVE STATEMENTS: Normal sinus rhythm Low voltage QRS Borderline ECG Compared to ECG 10/07/2020 12:37:26 T-wave abnormality no longer present Electronically Signed On 07-16-22 08:06:54 CDT by Kaz Callahan
== END 2022-07-14 17:22 | disposition home or self-care (01) ==
LOC: ER 12:08
DX: E86.9 Volume depletion, unspecified (principal); R53.1 Weakness; E11.9 Type 2 diabetes mellitus without complications; Z79.4 Long term (current) use of insulin; R05.9 Cough, unspecified; I10 Essential (primary) hypertension; E03.9 Hypothyroidism, unspecified; Z88.2 Allergy status to sulfonamides
CPT/HCPCS: 93005; 85025; 80048; 36415; 83735; 85610; 80076; 84484; 82533; 83880; 71045; 96375; 96374; 99284; J7040 ×2; J1720; J2405